=== PATIENT | male | born 1945 | race Caucasian/White ===

== ENCOUNTER 2023-07-21 12:08 | Inpatient (IN) | payer MEDICARE ==
[2023-07-21 12:46] LABS: Basophils % (A) 0 %; Eosinophils # (A) 0.2 k/uL (0-0.7); Eosinophils % (A) 2 %; HCT 34.6 % (39.0-53.0); HGB 11.8 gm/dL (13.0-17.5); Lymphocytes # (A) 1.5 k/uL (1.0-4.8); Lymphocytes % (A) 17 %; MCH 33.9 pg (25.0-35.0); MCV 99.7 fL (80.0-100.0); Macrocytosis Slight; Mean Platelet Volume 7.7; Monocytes # (A) 0.7 k/uL (0-1.0); Monocytes % (A) 8 %; Neutrophils # (A) 5.8 k/uL (1.3-7.7); Neutrophils % (A) 69 %; Platelet Count 319 k/uL (150-450); RBC 3.47 m/uL (4.30-5.90); RDW 13.9 % (11.5-15.5); WBC 8.5 k/uL (3.8-10.6)
--- NOTE | 2023-07-21 12:58 | XR ---
EXAMINATION TYPE: XR chest 2V DATE OF EXAM: 07/21/2023 12:53 PM COMPARISON: Chest radiographs from 07/21/2023 TECHNIQUE: XR chest 2V Frontal and lateral views of the chest. CLINICAL INDICATION:Male, 77 years old with history of difficulty breathing; FINDINGS: Lungs/Pleura: There is no evidence of pleural effusion, focal consolidation, or pneumothorax. Pulmonary vascularity: Unremarkable. Heart/mediastinum: Cardiomediastinal silhouette is unremarkable. Musculoskeletal: No acute osseous pathology. Mild degenerative changes of the thoracic spine. IMPRESSION: No acute cardiopulmonary disease/process.
[2023-07-21 13:13] LABS: ALT 37 U/L (4-49); AST 54 U/L (17-59); African American GFR (CKD) >90 (>60 ml/min/1.73 sqM); Albumin 3.4 g/dL (3.5-5.0); Alkaline Phosphatase 120 U/L (38-126); Anion Gap 8 mmol/L; Blood Urea Nitrogen 16 mg/dL (9-20); Calcium 9.5 mg/dL (8.4-10.2); Carbon Dioxide 25 mmol/L (22-30); Chloride 99 mmol/L (98-107); Glucose 105 mg/dL (74-99); Non-African American GFR(CKD) 84 (>60 ml/min/1.73 sqM); Potassium 4.3 mmol/L (3.5-5.1); Sodium 132 mmol/L (137-145); Total Bilirubin 1.1 mg/dL (0.2-1.3); Total Protein 7.1 g/dL (6.3-8.2)
[2023-07-21 13:21] LABS: NT-Pro-B-Type Natriuretic Pept 2200 pg/mL
[2023-07-21 13:27] LABS: Partial Thromboplastin Time 23.7 sec (22.0-30.0); Prothrombin Time 10.9 sec (10.0-12.5)
[2023-07-21] MEDS ORDERED: HEPARIN SODIUM 1,000 UN/ML (10ML VL) IV PRN (15:51)
[2023-07-21] MEDS ORDERED: HEPARIN SODIUM 1,000 UN/ML (10ML VL) IV ONE (15:51)
[2023-07-21] MEDS ORDERED: NALOXONE 0.4 MG/ML 1 ML VIAL IV PRN (15:57)
--- NOTE | 2023-07-21 15:57 | ED ---
SOB HPI - General Chief Complaint: Shortness of Breath Stated Complaint: chest pains Time Seen by Provider: 07/21/23 14:26 Source: patient Mode of arrival: ambulatory Limitations: no limitations - History of Present Illness Initial Comments: 77-year-old male with past medical history of eczema/psoriasis who presents to the emergency department with lower extremity swelling and shortness of breath. States that earlier this summer he was diagnosed with possible eczema versus psoriasis when he suffered from a very debilitating rash. He has been hospi talized several times and has seen several dermatologists. Recently he was on an 8 week course of prednisone which she finished 2 weeks ago. He reports that shortly after starting the prednisone he began having significant lower extremity swelling and shortness of breath. Since he has stopped the prednisone, the swelling has continued. He currently takes chlorthalidone. Today he saw his primary care, Dr. Joshua. He was reporting do his significant lower extremity edema and shortness of breath. They were to send the patient for an echo. They completed an EKG and found that he was in A. fib. This is new for the patient. He does not currently take any blood thinners. He denies any palpitations. No history of DVT or PE. No history of coronary disease. Due to the A. fib they decided that it was important for the patient to be evaluated in the emergency department for immediate cardiology consultation. The patient denies fevers or chills. No history of heart failure. No other alleviating, precipitating or modifying factors - Related Data Home Medications Medication Instructions Recorded Confirmed Ceramides 1,3,6-II [Cerave 1 applic TOPICAL BID 07/21/23 07/21/23 Moisturizing] Chlorhexidine Gluconate [Peridex] 15 ml PO QID 07/21/23 07/21/23 Chlorthalidone 25 mg PO HS 07/21/23 07/21/23 Clobetasol 0.05% Solution 1 applic TOPICAL BID 07/21/23 07/21/23 Clotrimazole Jean-Pierre [Mycelex 10 mg MUCOUS MEM QID 07/21/23 07/21/23 Jean-Pierre] Omeprazole [PriLOSEC] 20 mg PO AC-BRKFST 07/21/23 07/21/23 Petrolatum, White [Aquaphor] 1 applic TOPICAL BID PRN 07/21/23 07/21/23 Urea 20% Cream 1 applic TOPICAL BID PRN 07/21/23 07/21/23 atenoloL [Tenormin] 50 mg PO HS 07/21/23 07/21/23 lisinopriL 40 mg PO DAILY 07/21/23 07/21/23 Allergies Allergy/AdvReac Type Severity Reaction Status Date / Time ibuprofen AdvReac Unknown Verified 07/21/23 15:13 Review of Systems ROS Statement: Those systems with pertinent positive or pertinent negative responses have been documented in the HPI. ROS Other: All systems not noted in ROS Statement are negative. Past Medical History Past Medical History: No Reported History Past Surgical History: No Surgical Hx Reported Past Psychological History: No Psychological Hx Reported Smoking Status: Never smoker Past Alcohol Use History: Daily General Exam Limitations: no limitations General appearance: alert, in no apparent distress Head exam: Present: atraumatic, normocephalic, normal inspection Eye exam: Present: normal appearance, PERRL, EOMI. Absent: scleral icterus, conjunctival injection, periorbital swelling ENT exam: Present: normal exam, mucous membranes moist Neck exam: Present: normal inspection. Absent: tenderness, meningismus, lymphadenopathy Respiratory exam: Present: wheezes (Right upper lobe). Absent: respiratory distress, rales, rhonchi, stridor Cardiovascular Exam: Present: regular rate, normal rhythm, normal heart sounds. Absent: systolic murmur, diastolic murmur, rubs, gallop, clicks GI/Abdominal exam: Present: soft, normal bowel sounds. Absent: distended, tenderness, guarding, rebound, rigid Extremities exam: Present: full ROM, normal capillary refill, pedal edema (2+). Absent: tenderness, joint swelling, calf tenderness Back exam: Present: normal inspection Neurological exam: Present: alert, oriented X3, CN II-XII intact Psychiatric exam: Present: normal affect, normal mood Skin exam: Present: warm, dry, intact, normal color. Absent: rash Course Vital Signs 07/21/23 07/21/23 07/21/23 12:27 14:18 14:51 Temperature 97.7 F 98.3 F Pulse Rate 75 71 Respiratory 18 20 18 Rate Blood Pressure 140/93 177/107 O2 Sat by Pulse 95 100 Oximetry 07/21/23 07/21/23 07/21/23 16:39 18:17 21:20 Temperature 97.9 F Pulse Rate 80 87 88 Respiratory 18 17 16 Rate Blood Pressure 173/109 118/87 144/98 O2 Sat by Pulse 100 100 99 Oximetry Medical Decision Making - Medical Decision Making Was pt. sent in by a medical professional or institution (, [place], AUTOMOTIVE SOFTWARE ENGINEER, urgent care, hospital, or [place] health care facility...) When possible be specific @ -Patient was sent in by Dr. Tao's office Did you speak to anyone other than the patient for history (EMS, parent, family, police, friend...)? What history was obtained from this source @ - Did you review nursing and triage notes (agree or disagree)? Why? @ -I reviewed and agree with nursing and triage notes Were old charts reviewed (outside hosp., previous admission, EMS record, old EKG, old radiological studies, urgent care reports/EKG's, [place] health care facility records)? Report findings @ -I reviewed the patient's EKG from his primary office Differential Diagnosis (chest pain, altered mental status, abdominal pain women, abdominal pain men, vaginal bleeding, weakness, fever, dyspnea, syncope, headache, dizziness, GI bleed, back pain, seizure, CVA, palpatations, mental health, musculoskeletal)? @ -Differential Dyspnea: Coronary syndrome, arrhythmia, tamponade, asthma, COPD, pulmonary embolism, pneumonia, pneumothorax, pulmonary effusion, anaphylaxis, diabetic ketoacidosis, flailed chest, pulmonary contusion, diaphragmatic rupture, anemia, neuromuscular, this is not meant to be an all-inclusive list. EKG interpreted by me (3pts min.). @ -Yes and demonstrates A. fib with a rate of 72. QRS 108. QTC of 401. No a cute ST segment elevations or depressions X-rays interpreted by me (1pt min.). @ -Yes and demonstrates no acute intrathoracic process CT interpreted by me (1pt min.). @ -None done U/S interpreted by me (1pt. min.). @ -None done What testing was considered but not performed or refused? (CT, X-rays, U/S, labs)? Why? @ -None What meds were considered but not given or refused? Why? @ -None Did you discuss the management of the patient with other professionals (professionals i.e. Dr., PA, AUTOMOTIVE SOFTWARE ENGINEER, lab, RT, psych nurse, community mental health social worker, cardiopulmonary technologist chief, teacher, boat officer, wrapper caser)? Give summary @ -Spoke with Dr. Rodríguez who was agreeable to admit the patient Was smoking cessation discussed for >3mins.? @ -No Was critical care preformed (if so, how long)? @ -Yes, 35 minutes for management of heparin drip Were there social determinants of health that impacted care today? How? (Homeles sness, low income, unemployed, alcoholism, drug addiction, transportation, low edu. Level, literacy, decrease access to med. care, [facility], rehab)? @ -No Was there de-escalation of care discussed even if they declined (Discuss DNR or withdrawal of care, Hospice)? DNR status @ -No What co-morbidities impacted this encounter? (DM, HTN, Smoking, COPD, CAD, Cancer, CVA, ARF, Chemo, Hep., AIDS, mental health diagnosis, sleep apnea, morbid obesity)? @ -Significant psoriasis with steroid use Was patient admitted / discharged? Hospital course, mention meds given and route, prescriptions, significant lab abnormalities, going to OR and other pertinent info. @ -Upon arrival patient placed in room 17. Thorough history and physical exam was performed. 12 EKG was obtained which does demonstrate normal onset A. fib. Rate is controlled. IV is established and laboratory studies are conducted. BNP is elevated at 2200. Chest x-ray demonstrates no acute process. He was given 40 mg of Lasix. Echo was ordered. Recommended admission for cardiology consultation. Patient was agreeable. Spoke with Dr. Rodríguez who agreed to admit the patient. He is placed on a heparin drip because of his new-onset A. fib. He has no contraindications. Patient admitted in stable condition Undiagnosed new problem with uncertain prognosis? @ -Yes Drug Therapy requiring intensive monitoring for toxicity (Heparin, Nitro, Insulin, Cardizem)? @ -Heparin Were any procedures done? @ -No Diagnosis/symptom? @ -Acute bilateral lower extremity edema, new onset A. fib, acute respiratory insufficiency Acute, or Chronic, or Acute on Chronic? @ -Acute Uncomplicated (without systemic symptoms) or Complicated (systemic symptoms)? @ -Complicated Side effects of treatment? @ -Bleeding Exacerbation, Progression, or Severe Exacerbation? @ -No Poses a threat to life or bodily function? How? (Chest pain, [place], [place], pneumonia, PE, COPD, DKA, ARF, appy, cholecystitis, CVA, Diverticulitis, Homicidal, Suicidal, threat to staff... and all critical care pts) @ -Yes patient does have new onset A. fib - Lab Data Result diagrams: 07/21/23 12:35 07/21/23 12:35 Lab Results 07/21/23 07/21/23 07/21/23 Range/Units 12:35 12:35 12:35 WBC 8.5 (3.8-10.6) k/uL RBC 3.47 L (4.30-5.90) m/uL Hgb 11.8 L (13.0-17.5) gm/dL Hct 34.6 L (39.0-53.0) % MCV 99.7 (80.0-100.0) fL MCH 33.9 (25.0-35.0) pg MCHC 34.0 (31.0-37.0) g/dL RDW 13.9 (11.5-15.5) % Plt Count 319 (150-450) k/uL MPV 7.7 Neutrophils % 69 % Lymphocytes % 17 % Monocytes % 8 % Eosinophils % 2 % Basophils % 0 % Neutrophils # 5.8 (1.3-7.7) k/uL Lymphocytes # 1.5 (1.0-4.8) k/uL Monocytes # 0.7 (0-1.0) k/uL Eosinophils # 0.2 (0-0.7) k/uL Basophils # 0.0 (0-0.2) k/uL Macrocytosis Slight PT 10.9 (10.0-12.5) sec INR 1.0 (<1.2) APTT 23.7 (22.0-30.0) sec Sodium 132 L (137-145) mmol/L Potassium 4.3 (3.5-5.1) mmol/L Chloride 99 (98-107) mmol/L Carbon Dioxide 25 (22-30) mmol/L Anion Gap 8 mmol/L BUN 16 (9-20) mg/dL Creatinine 0.86 (0.66-1.25) mg/dL Est GFR (CKD-EPI)AfAm >90 (>60 ml/min/1.73 sqM) Est GFR (CKD-EPI)NonAf 84 (>60 ml/min/1.73 sqM) Glucose 105 H (74-99) mg/dL Calcium 9.5 (8.4-10.2) mg/dL Total Bilirubin 1.1 (0.2-1.3) mg/dL AST 54 (17-59) U/L ALT 37 (4-49) U/L Alkaline Phosphatase 120 (38-126) U/L Troponin I (0.000-0.034) ng/mL NT-Pro-B Natriuret Pep 2200 pg/mL Total Protein 7.1 (6.3-8.2) g/dL Albumin 3.4 L (3.5-5.0) g/dL 07/21/23 Range/Units 12:35 WBC (3.8-10.6) k/uL RBC (4.30-5.90) m/uL Hgb (13.0-17.5) gm/dL Hct (39.0-53.0) % MCV (80.0-100.0) fL MCH (25.0-35.0) pg MCHC (31.0-37.0) g/dL RDW (11.5-15.5) % Plt Count (150-450) k/uL MPV Neutrophils % % Lymphocytes % % Monocytes % % Eosinophils % % Basophils % % Neutrophils # (1.3-7.7) k/uL Lymphocytes # (1.0-4.8) k/uL Monocytes # (0-1.0) k/uL Eosinophils # (0-0.7) k/uL Basophils # (0-0.2) k/uL Macrocytosis PT (10.0-12.5) sec INR (<1.2) APTT (22.0-30.0) sec Sodium (137-145) mmol/L Potassium (3.5-5.1) mmol/L Chloride (98-107) mmol/L Carbon Dioxide (22-30) mmol/L Anion Gap mmol/L BUN (9-20) mg/dL Creatinine (0.66-1.25) mg/dL Est GFR (CKD-EPI)AfAm (>60 ml/min/1.73 sqM) Est GFR (CKD-EPI)NonAf (>60 ml/min/1.73 sqM) Glucose (74-99) mg/dL Calcium (8.4-10.2) mg/dL Total Bilirubin (0.2-1.3) mg/dL AST (17-59) U/L ALT (4-49) U/L Alkaline Phosphatase (38-126) U/L Troponin I 0.015 (0.000-0.034) ng/mL NT-Pro-B Natriuret Pep pg/mL Total Protein (6.3-8.2) g/dL Albumin (3.5-5.0) g/dL Disposition Clinical Impression: New onset a-fib, Lower extremity edema, Dyspnea Disposition: ADMITTED IP TO THIS HOSP Condition: Stable Is patient prescribed a controlled substance at d/c from ED?: No Time of Disposition: 15:57 Decision to Admit Reason: Admit from EC Decision Date: 07/21/23 Decision Time: 15:57
[2023-07-21] MEDS ORDERED: HEPARIN SOD,PORK IN 0.45% NACL 25,000 UNIT in 0.45% NACL 1 250ML.BAG IV SCH (16:00)
[2023-07-21] MEDS ORDERED: FUROSEMIDE 10 MG/ML 4 ML VIAL IV STA (16:06)
[2023-07-21] MEDS ORDERED: PETROLATUM, WHITE OINT 50 GM TUBE TOPICAL PRN (18:17)
[2023-07-21] MEDS ORDERED: NON FORMULARY DRUG (Urea 20% Cream 1 APPLIC) TOPICAL PRN (18:17)
--- NOTE | 2023-07-21 18:27 | P.HPIM ---
History of Present Illness H&P Date: 07/21/23 77-year-old male with PMH of hypertension, GERD, eczema presents to the ED for lower extremity swelling and shortness of breath. reports progressively worsening exertional shortness of breath over the past 3 years. He was recently started on a slow prednisone taper over 8 weeks (starting at 80m g) by his glass forming crew member which completed 2 weeks ago. Since prednisone, he reports excessive lower extremity swelling. He denies any orthopnea. He denies any PND. He denies any chest pain. reports abdominal distention but denies any changes in urination or bowel habits. He has a remote history of smoking cigarettes but quit many years ago. He went to go see his PCP, EKG showed rate control atrial fibrillation, patient was urged to come to the ED. In the ED, he underwent extensive evaluation. Vital signs were stable. CBC showed hemoglobin of 11.8. Coagulation panel within normal limits. CMP showed sodium of 132, glucose 105 and albumin of 3.4. Troponin 0.015. BNP 2200. Chest x-ray negative. EKG showed atrial fibrillation. Patient is admitted for further workup and management. General: non toxic, no distress, appears at stated age Derm: warm, dry Head: atraumatic, normocephalic, symmetric Eyes: EOMI, no lid lag, anicteric sclera Mouth: no lip lesion, mucus membranes moist Cardiovascular: S1S2 irregular, no murmur Lungs: CTA bilateral, no rhonchi, no rales , no accessory muscle use Abdominal: soft, nontender to palpation, no guarding, no appreciable organomegaly Ext: no gross muscle atrophy, 3+ pitting edema bilateral lower extremity, no contractures Neuro: no focal neuro deficits Psych: Alert, oriented, appropriate affect Bilateral lower extremity swelling New onset atrial fibrillation Exertional dyspnea Chronic condition: hypertension, GERD, eczema Based on my assessment of this patient, this patient meets a high complexity level of care. Patient has an acute diagnosis of new onset A-Fib that poses a threat to life or bodily function. He has progressively worsening LE swelling over the past 2 weeks. Bilateral lower extremity swelling: Likely related to prolonged steroid use. BNP within range for age. CXR negative. Advised LE elevation. Obtain Echo. Start Lasix 40 mg IV BID. New onset atrial fibrillation: AILEEN VASC 3. Start Heparin drip. Telemetry steffanie toring. Obtain Echo. Obtain TSH. Continue Atenolol 50 mg PO QHS. Exertional dyspnea: Echo as above. Not sure if cardiac. Pulmonary consult. I have reviewed the following data center consultant notes: I have reviewed the results of the following tests: As above I have ordered the following tests: Echo. D-Dimer. TSH I have discussed the care of this patient with the following independent historian: I have independently interpreted the following test below: EKG as above. I have discussed the management of this patient with the following physician: Discussed with Dr. Younger. Past Medical History Past Medical History: No Reported History Past Surgical History: No Surgical Hx Reported Past Psychological History: No Psychological Hx Reported Smoking Status: Never smoker Past Alcohol Use History: Daily Medications and Allergies Home Medications Medication Instructions Recorded Confirmed Type Ceramides 1,3,6-II [Cerave 1 applic TOPICAL BID 07/21/23 07/21/23 History Moisturizing] Chlorhexidine Gluconate [Peridex] 15 ml PO QID 07/21/23 07/21/23 History Chlorthalidone 25 mg PO HS 07/21/23 07/21/23 History Clobetasol 0.05% Solution 1 applic TOPICAL BID 07/21/23 07/21/23 History Clotrimazole Jean-Pierre [Mycelex 10 mg MUCOUS MEM QID 07/21/23 07/21/23 History Jean-Pierre] Omeprazole [PriLOSEC] 20 mg PO AC-BRKFST 07/21/23 07/21/23 History Petrolatum, White [Aquaphor] 1 applic TOPICAL BID PRN 07/21/23 07/21/23 History Urea 20% Cream 1 applic TOPICAL BID PRN 07/21/23 07/21/23 History atenoloL [Tenormin] 50 mg PO HS 07/21/23 07/21/23 History lisinopriL 40 mg PO DAILY 07/21/23 07/21/23 History Allergies Allergy/AdvReac Type Severity Reaction Status Date / Time ibuprofen AdvReac Unknown Verified 07/21/23 15:13 Physical Exam Vitals: Vital Signs Temp Pulse Resp BP Pulse Ox 07/21/23 18:17 97.9 F 87 17 118/87 100 07/21/23 16:39 80 18 173/109 100 07/21/23 14:51 98.3 F 71 18 177/107 100 07/21/23 14:18 20 07/21/23 12:27 97.7 F 75 18 140/93 95 Intake and Output 07/21/23 07/21/23 07/21/23 06:59 14:59 22:59 Other: Weight 117.48 kg Results CBC & Chem 7: 07/21/23 12:35 07/21/23 12:35 Labs: Abnormal Lab Results - Last 24 Hours (Table) 07/21/23 07/21/23 Range/Units 12:35 12:35 RBC 3.47 L (4.30-5.90) m/uL Hgb 11.8 L (13.0-17.5) gm/dL Hct 34.6 L (39.0-53.0) % Sodium 132 L (137-145) mmol/L Glucose 105 H (74-99) mg/dL Albumin 3.4 L (3.5-5.0) g/dL
--- NOTE | 2023-07-21 20:45 | P.CNPUL ---
History of Present Illness Consult date: 07/21/23 Reason for consult: dyspnea History of present illness: 77-year-old male patient was hospitalized for worsening shortness of breath. The patient has been having progressive exertional dyspnea and the patient has also noted some increased lower extremity edema. The patient has history of eczema/skin disorder and the patient was started on high-dose steroids approximately 8 weeks ago by the recovery collector which she completed approximately 2 weeks ago. He has seen dematology and he was given skin biopsy and a final diagnosis has not achieved and the skin lesions improved while on therapy and has recurred since. He was given also steroid cream. Along with intake of steroids, the patient developed significant fluid retention lower extremity edema. No orthopnea. No chest pain. No history of smoking and the patient's quit smoking a few years back. In the emergency department, the patient was found to be in atrial fibrillation with a controlled rate. The patient a proBNP level of 2200. Chest x-ray showed no acute abnormalities. Cognition profile was within normal limits. There was no was 11.8. EKG showed a new onset atrial fibrillation with a controlled rate. Accordingly, the patient was hospitalized. The patient was started on IV heparin. The patient is also on Lasix 40 mg IV every 12 hours. Echo cardiac, was also ordered. He has KRISTIE and he has been on CPAP therapy. Review of Systems Constitutional: Reports weight gain Eyes: denies as per HPI, denies blurred vision, denies bulging eye, denies decreased vision, denies diplopia, denies discharge, denies dry eye, denies irritation, denies itching, denies pain, denies photophobia, denies loss of per ipheral vision, denies loss of vision, denies tunnel vision/blind spots Ears: deny: decreased hearing, ear discharge, earache, tinnitus Ears, nose, mouth and throat: Reports as per HPI Breasts: absent: as per HPI, gynecomastia Cardiovascular: Reports decreased exercise tolerance, Reports irregular heart beat, Reports leg edema Respiratory: Reports dyspnea Gastrointestinal: Reports as per HPI Genitourinary: Reports as per HPI Musculoskeletal: Reports as per HPI Musculoskeletal: bilateral: ankle swelling, absent: ankle pain, ankle stiffness Integumentary: Reports as per HPI (History of eczema) Neurological: Reports as per HPI Psychiatric: Reports as per HPI Endocrine: Reports as per HPI Hematologic/Lymphatic: Reports as per HPI Allergic/Immunologic: Reports as per HPI Past Medical History Past Medical History: No Reported History, Atrial Fibrillation, GERD/Reflux, Hypertension, Sleep Apnea/CPAP/BIPAP Additional Past Medical History / Comment(s): Eczema/skin rash- steroid responsive Past Surgical History: No Surgical Hx Reported Past Psychological History: No Psychological Hx Reported Smoking Status: Never smoker Past Alcohol Use History: Daily Medications and Allergies Home Medications Medication Instructions Recorded Confirmed Type Ceramides 1,3,6-II [Cerave 1 applic TOPICAL BID 07/21/23 07/21/23 History Moisturizing] Chlorhexidine Gluconate [Peridex] 15 ml PO QID 07/21/23 07/21/23 History Chlorthalidone 25 mg PO HS 07/21/23 07/21/23 History Clobetasol 0.05% Solution 1 applic TOPICAL BID 07/21/23 07/21/23 History Clotrimazole Jean-Pierre [Mycelex 10 mg MUCOUS MEM QID 07/21/23 07/21/23 History Jean-Pierre] Omeprazole [PriLOSEC] 20 mg PO AC-BRKFST 07/21/23 07/21/23 History Petrolatum, White [Aquaphor] 1 applic TOPICAL BID PRN 07/21/23 07/21/23 History Urea 20% Cream 1 applic TOPICAL BID PRN 07/21/23 07/21/23 History atenoloL [Tenormin] 50 mg PO HS 07/21/23 07/21/23 History lisinopriL 40 mg PO DAILY 07/21/23 07/21/23 History Allergies Allergy/AdvReac Type Severity Reaction Status Date / Time ibuprofen AdvReac Unknown Verified 07/21/23 15:13 Physical Exam Vitals: Vital Signs Temp Pulse Resp BP Pulse Ox 07/21/23 18:17 97.9 F 87 17 118/87 100 07/21/23 16:39 80 18 173/109 100 07/21/23 14:51 98.3 F 71 18 177/107 100 07/21/23 14:18 20 07/21/23 12:27 97.7 F 75 18 140/93 95 Intake and Output 07/21/23 07/21/23 07/21/23 06:59 14:59 22:59 Other: Weight 117.48 kg General: non toxic, no distress, appears at stated age, the patient is currently on room air oxygen with a pulse ox of 99% Derm: warm, dry Head: atraumatic, normocephalic, symmetric Eyes: EOMI, no lid lag, anicteric sclera Mouth: no lip lesion, mucus membranes moist Cardiovascular: S1S2 irregular consistent with atrial fibrillation, no murmur Lungs: CTA bilateral, no rhonchi, no rales , no accessory muscle use Abdominal:Abdominal exam revealed normal bowel sounds. The abdomen was soft, non-tender, and without masses, organomegaly, or appreciable enlargement of the abdominal aorta. Ext: no gross muscle atrophy, 3+ pitting edema bilateral lower extremity, no contractures Neuro:Neurologically, the patient is awake and alert and the patient does not have any focal neurological deficit. Cranial nerves are essentially intact. Psych: Alert, oriented, appropriate affect Results - Laboratory Findings CBC and BMP: 07/21/23 12:35 07/21/23 12:35 PT/INR, D-dimer PT 10.9 sec (10.0-12.5) 07/21/23 12:35 INR 1.0 (<1.2) 07/21/23 12:35 Abnormal lab findings: Abnormal Labs 07/21/23 07/21/23 12:35 12:35 RBC 3.47 L Hgb 11.8 L Hct 34.6 L Sodium 132 L Glucose 105 H Albumin 3.4 L - Diagnostic Findings Chest x-ray: image reviewed Assessment and Plan Plan: New-onset A. fib, rate controlled, consider underlying CHF in proBNP is mildly elevated. Echocardiogram is pending for now. Patient is currently on IV heparin. Lower extremity edema, currently under investigation. Rule out underlying congestion heart failure Hypertension History of eczema/ skin rash that was steroid responsive and this has recurred since off steroids. History of steroid use currently off steroids. This was given to the patient for skin rash Acid reflux Obesity and he is on CPAP therapy at 16 cm H20 Impaired hearing and he has been exposed to agent orange Plan Continue Atenolol for rate control Continue diuretics, currently on Lasix 40 mg IV every 12 hours Echocardiogram to evaluate the LV IV heparin Patient is currently on room air oxygen. Chest x-ray shows no acute pulmonary abnormalities Allow the patient to use home CPAP therapy Keep off steroids We'll continue to follow
[2023-07-21] MEDS: atenoloL 50 MG TAB PO SCH (21:14)
[2023-07-21] MEDS: MINERAL OIL-WHITE PETROLATUM 120 GM JAR TOPICAL SCH (21:14)
[2023-07-21] MEDS: FUROSEMIDE 10 MG/ML 4 ML VIAL IV SCH (21:16)
[2023-07-21] MEDS: CLOTRIMAZOLE TROCHE 10 MG TROCHE MUCOUS MEM SCH (22:56)
[2023-07-22 04:26] LABS: Basophils % (A) 1 %; Eosinophils # (A) 0.4 k/uL (0-0.7); Eosinophils % (A) 5 %; HGB 11.7 gm/dL (13.0-17.5); Lymphocytes # (A) 1.3 k/uL (1.0-4.8); Lymphocytes % (A) 18 %; MCH 34.5 pg (25.0-35.0); MCHC 34.3 g/dL (31.0-37.0); MCV 100.6 fL (80.0-100.0); Macrocytosis Slight; Mean Platelet Volume 7.2; Monocytes # (A) 0.6 k/uL (0-1.0); Monocytes % (A) 8 %; Neutrophils # (A) 4.7 k/uL (1.3-7.7); Neutrophils % (A) 65 %; Platelet Count 294 k/uL (150-450); RBC 3.38 m/uL (4.30-5.90); RDW 14.1 % (11.5-15.5); WBC 7.2 k/uL (3.8-10.6)
[2023-07-22 04:54] LABS: Partial Thromboplastin Time 94.9 sec (22.0-30.0); Prothrombin Time 11.3 sec (10.0-12.5)
[2023-07-22 05:37] LABS: African American GFR (CKD) 85 (>60 ml/min/1.73 sqM); Anion Gap 8 mmol/L; Blood Urea Nitrogen 19 mg/dL (9-20); Calcium 9.5 mg/dL (8.4-10.2); Carbon Dioxide 26 mmol/L (22-30); Chloride 99 mmol/L (98-107); Glucose 107 mg/dL (74-99); Non-African American GFR(CKD) 74 (>60 ml/min/1.73 sqM); Potassium 3.5 mmol/L (3.5-5.1); Sodium 133 mmol/L (137-145)
--- NOTE | 2023-07-22 08:45 | CT ---
EXAMINATION TYPE: CT chest angio for PE CT DLP: 562.9 mGycm, Automated exposure control for dose reduction was used. DATE OF EXAM: 07/22/2023 8:24 AM COMPARISON: Chest radiograph from one day prior. CLINICAL INDICATION:Male, 77 years old with history of r/o PE; elevated d-dimer TECHNIQUE/CONTRAST: CTA scan of the thorax is performed with IV Contrast, patient injected with 60 mL of Isovue 370, MIP images are created and reviewed these are created on a separate workstation.. FINDINGS: Pulmonary Artery: Scattered filling defects within the right lower lobe pulmonary arterial vasculatur e as well as the left lower lobe pulmonary arterial vasculature. The left upper lobe and right upper lobe and middle lobe also demonstrate filling defects within the pulmonary arterial vasculature. Lungs/Pleura: No evidence of focal consolidation, pleural effusion or pneumothorax. Airway: Large airways are patent. Heart: The heart is enlarged for size with coronary artery atherosclerosis and aortic valve leaflet c alcifications. Vasculature: Mild atherosclerotic calcifications are present throughout the aorta and its branches. Mediastinum: No gross evidence of adenopathy. Musculoskeletal: Mild degenerative disc disease changes are present throughout the thoracolumbar spin e. Soft Tissues: Unremarkable. Lower neck: No significant findings. Upper Abdomen: Diffuse low-attenuation to the liver parenchyma.. IMPRESSION: 1. Scattered filling defects compatible with multiple pulmonary emboli no evidence for right heart s train at this time. 2. Hepatic steatosis. Findings communicated to Wes dumont NP on 07/22/2023 8:[address] Franco Griffin.
[2023-07-22] MEDS: lisinopriL 20 MG TAB PO SCH (08:52)
[2023-07-22] MEDS: FUROSEMIDE 10 MG/ML 4 ML VIAL IV SCH ×2 (08:52→19:53)
[2023-07-22] MEDS: CLOTRIMAZOLE TROCHE 10 MG TROCHE MUCOUS MEM SCH ×4 (08:53→23:30)
[2023-07-22] MEDS: PANTOPRAZOLE 40 MG TABLET PO SCH (08:53)
[2023-07-22] MEDS ORDERED: APIXABAN 5 MG TAB PO SCH (09:00)
[2023-07-22] MEDS: MINERAL OIL-WHITE PETROLATUM 120 GM JAR TOPICAL SCH ×2 (09:01→19:53)
--- NOTE | 2023-07-22 09:21 | US ---
EXAMINATION TYPE: US venous doppler duplex LE BI DATE OF EXAM: 07/22/2023 8:56 AM COMPARISON: CT today CLINICAL INDICATION: Male, 77 years old with history of r/o DVT; Bilateral edema SIDE PERFORMED: Bilateral TECHNIQUE: The lower extremity deep venous system is examined utilizing real time linear array sonog aki with graded compression, doppler sonography and color-flow sonography. VESSELS IMAGED: Common Femoral Vein Deep Femoral Vein Greater Saphenous Vein * Femoral Vein Popliteal Vein Small Saphenous Vein * Proximal Calf Veins (* superficial vessels) Grayscale, color doppler, spectral doppler imaging performed of the deep veins of the lower extremiti es. There is normal flow, compressibility, vascular waveforms. Right Leg: Negative for DVT Left Leg: Negative for DVT IMPRESSION: No deep venous thrombosis of the bilateral lower extremities.
[2023-07-22] MEDS: HEPARIN SOD,PORK IN 0.45% NACL 25,000 UNIT in 0.45% NACL 1 250ML.BAG IV SCH ×2 (09:50→19:51)
--- NOTE | 2023-07-22 12:18 | P.CRDCN ---
History of Present Illness Consult date: 07/22/23 Consult reason: atrial fibrillation (New onset, lower extremity edema) History of present illness: History of present illness: This is a 77-year-old male with past medical history of hypertension, gastroesophageal reflux disease, eczema, Agent [place] exposure in [place], recent treatment for thrush. 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 Patient gives history that he had a bad rash that was red and oozing was following with [facility] in [place] was recently sent to dermatology and has been on a prednisone taper starting at 80 mg daily for 7 days.patient states he completed prednisone about 2 weeks ago and the rash started coming back. He states for the past 2-3 weeks he's had some shortness o f breath and burning sensation in the midst part of his chest as well as lower extremity edema. He had a recheck [facility] in [place] and has an appointment with cardiology at the end of July. Because the chest burning has been going on since May worse when he bends over and is worse with activity. He also has nausea with it and lightheadedness. He states he will often sit down for 5 minutes and his symptoms improve. He denies having a history of diabetes, CVA or TIA and no history of atrial fibrillation. Also reported that he was at his PCP and EKG showed A. fib and he was sent in the emergency center. patient has subsequently been found to have multiple PE on CAT scan, and started on heparin drip. Patient is also been started on Lasix 40 mg IV every 12 hours. EKG atrial fibrillation with controlled rate 72 bpm Chest x-ray: No acute process CTA of the chest revealed scattered filling defects compatible with multiple pulmonary emboli. No evidence of right heart strain. Hepatis steatosis WBC 7.2, hemoglobin 11.7, platelet count 294. D-dimer 3.57. Sodium 133 oth erwise electrolytes and renal function are normal. Blood sugar 107. TSH 1.790 troponin negative 1. ProBNP 2200 Home cardiac medications: Atenolol 50 mg at bedtime, chlorthalidone 25 mg at bedtime, lisinopril 40 mg daily Review Of Systems: At the time of my evaluation: Constitutional: No fever, no chills. No weakness, fatigue or lethargy. EENT: No headache. No dizziness. Lungs: + shortness of breath, cough, no sputum production. No wheezing. +STINSON Cardiovascular: No chest pain, + lower extremity edema. No palpitations. No paroxysmal nocturnal dyspnea. No orthopnea. No lightheadedness or dizziness. No syncopal episodes. Abdominal: No abdominal pain. No nausea, vomiting. No diarrhea. No constipation. No bloody or tarry stools. Musculoskeletal: No myalgias. No muscle weakness, no frequent falls. Integumentary: No wounds. No rash. No unusual bruising. Neurologic: No aphasia. No facial droop. No change in mentation. Physical examination: Gen: This is a 77-year-old male lying in bed and appears to be in no acute distress VS: reviewed HEENT: Head is atraumatic, normocephalic. Pupils equal, round. Sclerae is anicteric. NECK: Supple. No JVD. . LUNGS: Clear to auscultation. No wheezes or rhonchi. No intercostal retractions. HEART: Irregular rate and rhythm. No murmur. ABDOMEN: Soft No tenderness. EXTREMITIES: + pedal edema. No calf tenderness. NEUROLOGICAL: Patient is awake, alert and oriented x3. Assessment: Pulmonary emboli, no right heart strain on CT New onset atrial fibrillation with controlled rate Acute heart failure Chest pain and Dyspnea on exertion concerning for underlying coronary artery disease Bilateral lower extremity edema Gastroesophageal reflux disease Hypertension Eczema/rash Plan: Continue IV Lasix Monitor I&O, daily weights, electrolytes and renal function Continue heparin drip Obtain 2-D echocardiogram and Doppler study to assess cardiac structure and function Plan for cardiac catheterization or stress test depending on results of echocardiogram Further recommendations to follow based upon clinical course Thank you kindly for this consultation. Nurse practitioner note has been reviewed, I agree with documented findings and plan of care. Patient was seen and examined. Past Medical History Past Medical History: No Reported History Additional Past Medical History / Comment(s): Eczema/skin rash- steroid responsive Past Surgical History: No Surgical Hx Reported Past Psychological History: No Psychological Hx Reported Smoking Status: Never smoker Past Alcohol Use History: Daily Medications and Allergies Home Medications Medication Instructions Recorded Confirmed Type Ceramides 1,3,6-II [Cerave 1 applic TOPICAL BID 07/21/23 07/21/23 History Moisturizing] Chlorhexidine Gluconate [Peridex] 15 ml PO QID 07/21/23 07/21/23 History Chlorthalidone 25 mg PO HS 07/21/23 07/21/23 History Clobetasol 0.05% Solution 1 applic TOPICAL BID 07/21/23 07/21/23 History Clotrimazole Jean-Pierre [Mycelex 10 mg MUCOUS MEM QID 07/21/23 07/21/23 History Jean-Pierre] Omeprazole [PriLOSEC] 20 mg PO AC-BRKFST 07/21/23 07/21/23 History Petrolatum, White [Aquaphor] 1 applic TOPICAL BID PRN 07/21/23 07/21/23 History Urea 20% Cream 1 applic TOPICAL BID PRN 07/21/23 07/21/23 History atenoloL [Tenormin] 50 mg PO HS 07/21/23 07/21/23 History lisinopriL 40 mg PO DAILY 07/21/23 07/21/23 History Allergies Allergy/AdvReac Type Severity Reaction Status Date / Time ibuprofen AdvReac Unknown Verified 07/21/23 15:13 Physical Exam Vitals: Vital Signs Temp Pulse Resp BP Pulse Ox 07/22/23 08:51 73 18 153/79 99 07/22/23 05:00 69 18 134/92 98 07/22/23 04:45 62 18 144/99 07/22/23 00:42 71 18 149/77 93 L 07/21/23 21:20 88 16 144/98 99 07/21/23 18:17 97.9 F 87 17 118/87 100 07/21/23 16:39 80 18 173/109 100 07/21/23 14:51 98.3 F 71 18 177/107 100 07/21/23 14:18 20 07/21/23 12:27 97.7 F 75 18 140/93 95 Intake and Output 07/21/23 07/22/23 07/22/23 22:59 06:59 14:59 Intake Total 62.667 87.365 Output Total 350 450 Balance -287.333 -362.635 Intake: Intake, IV Titration 62.667 87.365 Amount Heparin Sod,Pork in 0.45% 62.667 87.365 NaCl 25,000 unit In 0.45 % NaCl 1 250ml.bag @ 8. 512 UNITS/KG/HR 10 mls/hr IV .Q24H [facility] Rx#: [id number] Output: Urine 350 450 Other: # Voids 1 Results 07/22/23 03:56 07/22/23 03:56 Cardiac Enzymes 07/21/23 07/21/23 Range/Units 12:35 12:35 AST 54 (17-59) U/L Troponin I 0.015 (0.000-0.034) ng/mL Coagulation 07/21/23 07/21/23 07/22/23 Range/Units 12:35 21:33 03:56 PT 10.9 11.3 (10.0-12.5) sec APTT 23.7 33.8 H 94.9 H (22.0-30.0) sec CBC 07/21/23 07/22/23 Range/Units 12:35 03:56 WBC 8.5 7.2 (3.8-10.6) k/uL RBC 3.47 L 3.38 L (4.30-5.90) m/uL Hgb 11.8 L 11.7 L (13.0-17.5) gm/dL Hct 34.6 L 34.0 L (39.0-53.0) % Plt Count 319 294 (150-450) k/uL Comprehensive Metabolic Panel 07/21/23 07/22/23 Range/Units 12:35 03:56 Sodium 132 L 133 L (137-145) mmol/L Potassium 4.3 3.5 (3.5-5.1) mmol/L Chloride 99 99 (98-107) mmol/L Carbon Dioxide 25 26 (22-30) mmol/L BUN 16 19 (9-20) mg/dL Creatinine 0.86 0.99 (0.66-1.25) mg/dL Glucose 105 H 107 H (74-99) mg/dL Calcium 9.5 9.5 (8.4-10.2) mg/dL AST 54 (17-59) U/L ALT 37 (4-49) U/L Alkaline Phosphatase 120 (38-126) U/L Total Protein 7.1 (6.3-8.2) g/dL Albumin 3.4 L (3.5-5.0) g/dL Current Medications Generic Name Dose Route Start Last Admin Trade Name Freq PRN Reason Stop Dose Admin Atenolol 50 mg 07/21/23 21:00 07/21/23 21:14 Atenolol 50 Mg Tab PO 50 mg HS [facility] Administration Clotrimazole 10 mg 07/21/23 22:00 07/22/23 08:53 Clotrimazole Jean-Pierre 10 Mg Jean-Pierre MUCOUS MEM 10 mg QID [facility] Administration Furosemide 40 mg 07/21/23 21:00 07/22/23 08:52 Furosemide 10 Mg/Ml 4 Ml Vial IV 40 mg Q12HR [facility] Administration Heparin Sodium/Sodium Chloride 250 mls @ 21.146 mls/hr 07/22/23 08:45 25,000 unit/ Sodium Chloride IV .[id number] [facility] Protocol 18 UNITS/KG/HR Lisinopril 40 mg 07/22/23 09:00 07/22/23 08:52 Lisinopril 20 Mg Tab PO 40 mg DAILY [facility] Administration Multi-Ingred Cream/Lotion/Oil/Oint 1 applic 07/21/23 21:00 07/21/23 21:14 Mineral Oil-White Petrolatum 120 Gm Jar TOPICAL 1 applic BID [facility] Administration Naloxone HCl 0.2 mg 07/21/23 15:57 Naloxone 0.4 Mg/Ml 1 Ml Vial IV Q2M PRN Opioid Reversal Non-Formulary Medication 1 applic 07/21/23 18:17 Urea 20% Cream TOPICAL BID PRN skin issues/arms Pantoprazole Sodium 40 mg 07/22/23 07:30 07/22/23 08:53 Pantoprazole 40 Mg Tablet PO 40 mg AC-BRKFST [facility] Administration Petrolatum 1 applic 07/21/23 18:17 Petrolatum, White Oint 50 Gm Tube TOPICAL BID PRN Dry Skin Protocol Intake and Output 07/21/23 07/22/23 07/22/23 22:59 06:59 14:59 Intake Total 62.667 87.365 Output Total 350 450 Balance -287.333 -362.635 Intake: Intake, IV Titration 62.667 87.365 Amount Heparin Sod,Pork in 0.45% 62.667 87.365 NaCl 25,000 unit In 0.45 % NaCl 1 250ml.bag @ 8. 512 UNITS/KG/HR 10 mls/hr IV .Q24H [facility] Rx#: [id number] Output: Urine 350 450 Other: # Voids 1 07/22/23 03:56 07/22/23 03:56
--- NOTE | 2023-07-22 13:44 | P.PN ---
Subjective Progress Note Date: 07/22/23 77-year-old male with PMH of hypertension, GERD, eczema presents to the ED for lower extremity swelling and shortness of breath. reports progressively worsening exertional shortness of breath over the past 3 years. He was recently started on a slow prednisone taper over 8 weeks (starting at 80mg) by his human services care specialist which completed 2 weeks ago. Since prednisone, he reports excessive lower extremity swelling. He denies any orthopnea. He denies any PND. He denies any chest pain. reports abdominal distention but denies any changes in urination or bowel habits. He has a remote history of smoking cigarettes but quit many years ago. He went to go see his PCP, EKG showed rate control atrial fibrillation, patient was urged to come to the ED. In the ED, he underwent extensive evaluation. Vital signs were stable. CBC showed hemoglobin of 11.8. Coagulation panel within normal limits. CMP showed sodium of 132, glucose 105 and albumin of 3.4. Troponin 0.015. BNP 2200. Chest x-ray negative. EKG showed atrial fibrillation. 07/22 Patient was seen and examined. No acute events overnight. Continued SOB and LE swelling. Apparently he was given a dose of Kayexalate and calcium gluconate that was intended to be ordered for another patient by nursing. D- Dimer 3.57. CTA chest was ordered + for PE. LE venous doppler negative for DVT. Repeat troponin 0.018. TSH 1.79. APTT 94.9. BMP shows Na 133, glucose 107. A1c 6.6. CBC shows Hg 11.7 with MCV 100.6. He is continued of Lasix 40 mg IV BID and Heparin drip (switched to high intensity due to PE diagnosis). Cardiology recommends continued diuresis and Echo with possible cath. Pulmonology recommends continued diuresis and IV heparin. General: non toxic, no distress, appears at stated age Derm: warm, dry Head: atraumatic, normocephalic, symmetric Eyes: EOMI, no lid lag, anicteric sclera Cardiovascular: S1S2 irregular, no murmur Lungs: CTA bilateral, no rhonchi, no rales , no accessory muscle use Ext: no gross muscle atrophy, 3+ pitting edema bilateral lower extremity, no contractures Neuro: no focal neuro deficits Psych: Alert, oriented, appropriate affect Pulmonary embolus Bilateral lower extremity swelling New onset atrial fibrillation Chronic condition: hypertension, GERD, eczema Based on my assessment of this patient, this patient meets a high complexity level of care. Patient has an acute diagnosis of new onset A-Fib that poses a threat to life or bodily function. He has progressively worsening LE swelling over the past 2 weeks. Found to have PE. Echo is pending. Pulmonary embolus: Switch heparin drip to high intensity. Hypercoag workup in the outpatient setting. Bilateral lower extremity swelling: Likely related to prolonged steroid use. BNP within range for age. CXR negative. Advised LE elevation. Obtain Echo. Start Lasix 40 mg IV BID. New onset atrial fibrillation: AILEEN VASC 3. Continue Heparin drip. Telemetry monitoring. Obtain Echo. Continue Atenolol 50 mg PO QHS. I have reviewed the following alliances consultant notes: [place], Cardio note. I have reviewed the results of the following tests: As above I have ordered the following tests: Echo is pending. BMP to monitor renal function while on Lasix. I have discussed the care of this patient with the following independent historian: I have independently interpreted the following test below: Repeat EKG today shows sinus rhythm with sinus arrhythmia. I have discussed the management of this patient with the following physician: Objective - Vital Signs Vital signs: Vital Signs Temp 98.6 F 07/22/23 12:00 Pulse 76 07/22/23 12:00 Resp 18 07/22/23 12:00 BP 150/81 07/22/23 12:00 Pulse Ox 98 07/22/23 12:00 FiO2 Intake & Output 07/21/23 07/22/23 07/22/23 18:59 06:59 18:59 Intake Total 150.032 110 Output Total 800 Balance -649.968 110 Weight 117.48 kg 117.48 kg Intake: Intake, IV Titration 150.032 Amount Heparin Sod,Pork in 0.45% 150.032 NaCl 25,000 unit In 0.45 % NaCl 1 250ml.bag @ 8. 512 UNITS/KG/HR 10 mls/hr IV .Q24H [facility] Rx#: [id number] Oral 110 Output: Urine 800 Other: # Voids 1 - Labs CBC & Chem 7: 07/22/23 03:56 07/22/23 03:56 Labs: Abnormal Lab Results - Last 24 Hours (Table) 1007/22/23 07/22/23 Range/Units 21:33 03:56 03:56 RBC 3.38 L (4.30-5.90) m/uL Hgb 11.7 L (13.0-17.5) gm/dL Hct 34.0 L (39.0-53.0) % MCV 100.6 H (80.0-100.0) fL APTT 33.8 H (22.0-30.0) sec D-Dimer (<0.60) mg/L FEU Sodium (137-145) mmol/L Glucose (74-99) mg/dL Hemoglobin A1c 6.6 H (<=6.0) % 07/22/23 07/22/23 07/22/23 Range/Units 03:56 03:56 09:40 RBC (4.30-5.90) m/uL Hgb (13.0-17.5) gm/dL Hct (39.0-53.0) % MCV (80.0-100.0) fL APTT 94.9 H 58.5 H (22.0-30.0) sec D-Dimer 3.57 H (<0.60) mg/L FEU Sodium 133 L (137-145) mmol/L Glucose 107 H (74-99) mg/dL Hemoglobin A1c (<=6.0) %
--- NOTE | 2023-07-22 15:04 | P.PN ---
Subjective Progress Note Date: 07/22/23 77-year-old male patient was hospitalized for worsening shortness of breath. The patient has been having progressive exertional dyspnea and the patient has also noted some increased lower extremity edema. The patient has history of eczema/skin disorder and the patient was started on high-dose steroids approximately 8 weeks ago by the environmental engineering professor which she completed approximately 2 weeks ago. He has seen dematology and he was given skin biopsy and a final diagnosis has not achieved and the skin lesions improved while on therapy and has recurred since. He was given also steroid cream. Along with intake of steroids, the patient developed significant fluid retention lower extremity edema. No orthopnea. No chest pain. No history of smoking and the patient's quit smoking a few years back. In the emergency department, the patient was found to be in atrial fibrillation with a controlled rate. The patient a proBNP level of 2200. Chest x-ray showed no acute abnormalities. Cognition profile was within normal limits. There was no was 11.8. EKG showed a new onset atrial fibrillation with a controlled rate. Accordingly, the patient was hospitalized. The patient was started on IV heparin. The patient is also on Lasix 40 mg IV every 12 hours. Echo cardiac, was also ordered. He has KRISTIE and he has been on CPAP therapy. On today's evaluation of 07/22/2023 patient for a follow-up. The patient is doing well. No specific complaints. He remains in atrial fibrillation. Rate is controlled for now. Echocardiogram is to be done today. The patient remains on IV heparin. The patient is still taking Lasix 40 mg IV every 12 hours and is producing adequate amount of urine output. He is off steroids. His skin lesions do not to be related to be pityriasis. He was also able to bring in his CPAP machine. I checked the machine. The patient is set at a pressure of 15 cm of water on outpatient basis. The patient's WBC count at 7.2, hemoglobin 11.7, PTT therapeutic at 58. BUN is 19 with a creatinine of 0.9. ProBNP level is 2200 and the TSH is at 1.7. Troponins of 0.01 respectively 2. He has no specific complaints otherwise for now. He feels well. Objective - Vital Signs Vital signs: Vital Signs Temp 97.9 F 07/21/23 18:17 Pulse 73 07/22/23 08:51 Resp 18 07/22/23 08:51 BP 153/79 07/22/23 08:51 Pulse Ox 99 07/22/23 08:51 FiO2 Intake & Output 07/21/23 07/22/23 07/22/23 18:59 06:59 18:59 Intake Total 150.032 Output Total 800 Balance -649.968 Weight 117.48 kg Intake: Intake, IV Titration 150.032 Amount Heparin Sod,Pork in 0.45% 150.032 NaCl 25,000 unit In 0.45 % NaCl 1 250ml.bag @ 8. 512 UNITS/KG/HR 10 mls/hr IV .Q24H [facility] Rx#: [id number] Output: Urine 800 Other: # Voids 1 - Exam General: non toxic, no distress, appears at stated age, the patient is currently on room air oxygen with a pulse ox of 99% Derm: warm, dry Head: atraumatic, normocephalic, symmetric Eyes: EOMI, no lid lag, anicteric sclera Mouth: no lip lesion, mucus membranes moist Cardiovascular: S1S2 irregular consistent with atrial fibrillation, no murmur Lungs: CTA bilateral, no rhonchi, no rales , no accessory muscle use Abdominal:Abdominal exam revealed normal bowel sounds. The abdomen was soft, non-tender, and without masses, organomegaly, or appreciable enlargement of the abdominal aorta. Ext: no gross muscle atrophy, 3+ pitting edema bilateral lower extremity, no contractures Neuro:Neurologically, the patient is awake and alert and the patient does not have any focal neurological deficit. Cranial nerves are essentially intact. Psych: Alert, oriented, appropriate affect - Labs CBC & Chem 7: 07/22/23 03:56 07/22/23 03:56 Labs: Abnormal Lab Results - Last 24 Hours (Table) 07/21/23 07/21/23 07/21/23 Range/Units 12:35 12:35 21:33 RBC 3.47 L (4.30-5.90) m/uL Hgb 11.8 L (13.0-17.5) gm/dL Hct 34.6 L (39.0-53.0) % MCV (80.0-100.0) fL APTT 33.8 H (22.0-30.0) sec D-Dimer (<0.60) mg/L FEU Sodium 132 L (137-145) mmol/L Glucose 105 H (74-99) mg/dL Hemoglobin A1c (<=6.0) % Albumin 3.4 L (3.5-5.0) g/dL 07/22/23 07/22/23 07/22/23 Range/Units 03:56 03:56 03:56 RBC 3.38 L (4.30-5.90) m/uL Hgb 11.7 L (13.0-17.5) gm/dL Hct 34.0 L (39.0-53.0) % MCV 100.6 H (80.0-100.0) fL APTT (22.0-30.0) sec D-Dimer (<0.60) mg/L FEU Sodium 133 L (137-145) mmol/L Glucose 107 H (74-99) mg/dL Hemoglobin A1c 6.6 H (<=6.0) % Albumin (3.5-5.0) g/dL 07/22/23 07/22/23 Range/Units 03:56 09:40 RBC (4.30-5.90) m/uL Hgb (13.0-17.5) gm/dL Hct (39.0-53.0) % MCV (80.0-100.0) fL APTT 94.9 H 58.5 H (22.0-30.0) sec D-Dimer 3.57 H (<0.60) mg/L FEU Sodium (137-145) mmol/L Glucose (74-99) mg/dL Hemoglobin A1c (<=6.0) % Albumin (3.5-5.0) g/dL Assessment and Plan Plan: New-onset A. fib, rate controlled, consider underlying CHF in proBNP is mildly elevated. Echocardiogram is pending for now. Patient is currently on IV hep rao. Lower extremity edema, currently under investigation. Rule out underlying congestion heart failure Hypertension History of eczema/pityriasis skin rash that was steroid responsive and this has recurred since off steroids. History of steroid use currently off steroids. This was given to the patient for skin rash. I saw him this was related to pityriasis Acid reflux Obesity and he is on CPAP therapy at 15 cm of water Impaired hearing and he has been exposed to agent orange Plan Continue Atenolol for rate control and the patient is receiving 50 mg by mouth daily Continue diuretics, currently on Lasix 40 mg IV every 12 hours Echocardiogram to evaluate the LV, results are still pending IV heparin, primary grade teacher on the case Patient is currently on room air oxygen. Chest x-ray shows no acute pulmonary abnormalities Allow the patient to use home CPAP therapy Keep off steroids We'll continue to follow
--- NOTE | 2023-07-22 16:52 | CA ---
Transthoracic Echo Report Name: Kilo Yeh Age: 77 Gender: M : 1945 Exam Date: 07/22/2023 10:15 Exam Location: [facility] Ht (in): 70 Wt (lb): 259 Ordering Physician: Abigail Younger DO Attending/Referring Phys: [id number], [employer] Superintendent Ana Luisa Mtz RDCS Procedure CPT: Indications: new onset afib, lower extremity swelling, bnp high Cardiac Hx: Technical Quality: Poor Contrast 1: Definity Total Dose (mL): 2 Contrast 2: Total Dose (mL): MEASUREMENTS (Male / Female) Normal Values 2D ECHO LV Diastolic Diameter PLAX 3.4 cm 4.2 - 5.9 / 3.9 - 5.3 cm LV Systolic Diameter PLAX 2.3 cm IVS Diastolic Thickness 1.6 cm 0.6 - 1.0 / 0.6 - 0.9 cm LVPW Diastolic Thickness 1.4 cm 0.6 - 1.0 / 0.6 - 0.9 cm LV Relative Wall Thickness 0.9 RV Internal Dim ED PLAX 4.0 cm LA Volume 95.7 cm??? 18 - 58 / 22 - 52 cm??? LA Volume Index 39.0 cm???/m??? 16 - 28 cm???/m??? M-MODE Aortic Root Diameter MM 3.3 cm LA Systolic Diameter MM 6.5 cm LA Ao Ratio MM 1.9 AV Cusp Separation MM 1.3 cm DOPPLER AV Peak Velocity 221.3 cm/s AV Peak Gradient 19.6 mmHg AV Mean Velocity 181.5 cm/s AV Mean Gradient 14.0 mmHg AV Velocity Time Integral 49.6 cm LVOT Peak Velocity 103.0 cm/s LVOT Peak Gradient 4.2 mmHg LVOT Velocity Time Integral 21.5 cm MV Area PHT 3.4 cm??? Mitral E Point Velocity 87.7 cm/s Mitral A Point Velocity 0.6 cm/s Mitral E to A Ratio 147.4 MV Deceleration Time 222.3 ms MV E' Velocity 6.7 cm/s Mitral E to MV E' Ratio 13.2 TR Peak Velocity 289.6 cm/s TR Peak Gradient 33.5 mmHg Right Ventricular Systolic Press 37.5 mmHg FINDINGS Left Ventricle Moderately increased left ventricular wall thickness. Left ventricular cavity size normal. Normal left ventricular systolic function with no obvious regional wall motion abnormalities. Left ventricular ejection fraction is estimated at 55 %. Right Ventricle Mild right ventricular dilatation. Mild pulmonary hypertension. Right Atrium Moderate right atrial dilatation. Left Atrium Moderately increased left atrial volume. Mildly increased left atrial area. Mitral Valve Structurally normal mitral valve. Mild mitral regurgitation. Aortic Valve Mild aortic stenosis with a peak gradient of 20 mmHg and a mean gradient of 14 mmHg. Tricuspid Valve Structurally normal tricuspid valve. [id number] tricuspid regurgitation. Pulmonic Valve Trace pulmonic regurgitation. Pericardium No pericardial effusion. Aorta Normal size aortic root and proximal ascending aorta. CONCLUSIONS Left ventricular ejection fraction is estimated at 55 %. No obvious regional wall motion abnormalities. Moderately increased left ventricular wall thickness. Moderate biatrial dilatation Mild aortic stenosis with mean gradient of 14 mmHg Mild right ventricular dilatation. RVSP estimated at 37 mmHg Epicardial fat with no pericardial effusion Previewed by: Dr Fran Carbajal (Electronically Signed) Final Date: 22 July 2023 16:51
[2023-07-22] MEDS ORDERED: POTASSIUM CHLORIDE ER 20 MEQ TAB.ER PO STA (19:28)
--- NOTE | 2023-07-22 19:32 | P.PN ---
Progress Note - Text Progress Note Date: 07/22/23 Informed by the ED RN at around 0400 that the patient was inadvertently given calcium gluconate 1 g IV and Kayexalate 15 g by mouth which were both ordered for a different patient. The patient was continued on tele monitoring and laboratory evaluation. Discussed with the RN in detail regarding monitoring of bowel movements.
[2023-07-22] MEDS: atenoloL 50 MG TAB PO SCH (19:53)
[2023-07-23] MEDS: PANTOPRAZOLE 40 MG TABLET PO SCH (06:53)
[2023-07-23] MEDS: HEPARIN SOD,PORK IN 0.45% NACL 25,000 UNIT in 0.45% NACL 1 250ML.BAG IV SCH (08:11)
[2023-07-23] MEDS: FUROSEMIDE 10 MG/ML 4 ML VIAL IV SCH ×2 (08:15→19:40)
[2023-07-23] MEDS: lisinopriL 20 MG TAB PO SCH (08:15)
[2023-07-23] MEDS: CLOTRIMAZOLE TROCHE 10 MG TROCHE MUCOUS MEM SCH ×4 (08:15→19:40)
[2023-07-23] MEDS: MINERAL OIL-WHITE PETROLATUM 120 GM JAR TOPICAL SCH ×2 (08:15→19:40)
[2023-07-23] MEDS: APIXABAN 5 MG TAB PO SCH ×2 (08:59→19:39)
[2023-07-23 09:26] LABS: HCT 34.9 % (39.0-53.0); HGB 11.7 gm/dL (13.0-17.5); MCH 34.3 pg (25.0-35.0); MCHC 33.4 g/dL (31.0-37.0); MCV 102.7 fL (80.0-100.0); Macrocytosis Slight; Mean Platelet Volume 7.3; Platelet Count 275 k/uL (150-450); RBC 3.39 m/uL (4.30-5.90); WBC 9.2 k/uL (3.8-10.6)
[2023-07-23 10:01] LABS: African American GFR (CKD) 75 (>60 ml/min/1.73 sqM); Anion Gap 14 mmol/L; Blood Urea Nitrogen 22 mg/dL (9-20); Calcium 9.5 mg/dL (8.4-10.2); Carbon Dioxide 22 mmol/L (22-30); Chloride 101 mmol/L (98-107); Glucose 122 mg/dL (74-99); Non-African American GFR(CKD) 65 (>60 ml/min/1.73 sqM); Potassium 3.6 mmol/L (3.5-5.1); Sodium 137 mmol/L (137-145)
--- NOTE | 2023-07-23 11:47 | P.PN ---
Subjective Progress Note Date: 07/23/23 77-year-old male patient was hospitalized for worsening shortness of breath. The patient has been having progressive exertional dyspnea and the patient has also noted some increased lower extremity edema. The patient has history of eczema/skin disorder and the patient was started on high-dose steroids approximately 8 weeks ago by the finishing range supervisor which she completed approximately 2 weeks ago. He has seen dematology and he was given skin biopsy and a final diagnosis has not achieved and the skin lesions improved while on therapy and has recurred since. He was given also steroid cream. Along with intake of steroids, the patient developed significant fluid retention lower extremity edema. No orthopnea. No chest pain. No history of smoking and the patient's quit smoking a few years back. In the emergency department, the patient was found to be in atrial fibrillation with a controlled rate. The patient a proBNP level of 2200. Chest x-ray showed no acute abnormalities. Cognition profile was within normal limits. There was no was 11.8. EKG showed a new onset atrial fibrillation with a controlled rate. Accordingly, the patient was hospitalized. The patient was started on IV heparin. The patient is also on Lasix 40 mg IV every 12 hours. Echo cardiac, was also ordered. He has KRISTIE and he has been on CPAP therapy. On today's evaluation of 07/22/2023 patient for a follow-up. The patient is doing well. No specific complaints. He remains in atrial fibrillation. Rate is controlled for now. Echocardiogram is to be done today. The patient remains on IV heparin. The patient is still taking Lasix 40 mg IV every 12 hours and is producing adequate amount of urine output. He is off steroids. His skin lesions do not to be related to be pityriasis. He was also able to bring in his CPAP machine. I checked the machine. The patient is set at a pressure of 15 cm of water on outpatient basis. The patient's WBC count at 7.2, hemoglobin 11.7, PTT therapeutic at 58. BUN is 19 with a creatinine of 0.9. ProBNP level is 2200 and the TSH is at 1.7. Troponins of 0.01 respectively 2. He has no specific complaints otherwise for now. He feels well. On 07/23/2023, the patient is being seen for a follow-up. Doing well. He is on room air oxygen. He remains in atrial fibrillation. The patient was also started on anticoagulation. Is currently on anticoagulation with Eliquis 10 mg by mouth twice a day. Noted a CT angiogram was also done and the patient was found to have subsegmental small pulmonary emboli in the lower lobes bilaterally. As such, the patient is going to require anticoagulation for his A. fib and pulmonary embolism. His rash is stable. He is ambulating. No significant shortness of breath. No episodes of 9.2, hemoglobin is 11.7, BUN is at 22 with a creatinine of 1.1. His lower extremity edema is improved and the patient remains on Lasix 40 mg IV every 12 hours. The patient remains in negative fluid balance. Objective - Vital Signs Vital signs: Vital Signs Temp 97.7 F 07/23/23 08:00 Pulse 78 07/23/23 08:00 Resp 18 07/23/23 08:00 BP 107/73 07/23/23 08:00 Pulse Ox 98 07/23/23 08:00 FiO2 Intake & Output 07/22/23 07/23/23 07/23/23 18:59 06:59 18:59 Intake Total 387.406 0 350 Output Total 200 200 Balance 387.406 -200 150 Weight 117.48 kg 111.6 kg Intake: Intake, IV Titration 167.406 0 Amount Heparin Sod,Pork in 0.45% 167.406 0 NaCl 25,000 unit In 0.45 % NaCl 1 250ml.bag @ 18 UNITS/KG/HR 21.146 mls/hr IV .[id number] [facility] Rx#: [id number] Oral 220 350 Output: Urine 200 200 Other: Voiding Method Toilet Urinal # Voids 1 - Exam General: non toxic, no distress, appears at stated age, the patient is currently on room air oxygen with a pulse ox of 99% Derm: warm, dry Head: atraumatic, normocephalic, symmetric Eyes: EOMI, no lid lag, anicteric sclera Mouth: no lip lesion, mucus membranes moist Cardiovascular: S1S2 irregular consistent with atrial fibrillation, no murmur Lungs: CTA bilateral, no rhonchi, no rales , no accessory muscle use Abdominal:Abdominal exam revealed normal bowel sounds. The abdomen was soft, non-tender, and without masses, organomegaly, or appreciable enlargement of the abdominal aorta. Ext: no gross muscle atrophy, 3+ pitting edema bilateral lower extremity, no contractures Neuro:Neurologically, the patient is awake and alert and the patient does not have any focal neurological deficit. Cranial nerves are essentially intact. Psych: Alert, oriented, appropriate affect - Labs CBC & Chem 7: 07/23/23 09:10 07/23/23 09:10 Labs: Abnormal Lab Results - Last 24 Hours (Table) 07/22/23 07/23/23 07/23/23 Range/Units 15:45 00:49 09:10 RBC 3.39 L (4.30-5.90) m/uL Hgb 11.7 L (13.0-17.5) gm/dL Hct 34.9 L (39.0-53.0) % MCV 102.7 H (80.0-100.0) fL APTT 157.5 H* 100.6 H* (22.0-30.0) sec BUN (9-20) mg/dL Glucose (74-99) mg/dL 07/23/23 Range/Units 09:10 RBC (4.30-5.90) m/uL Hgb (13.0-17.5) gm/dL Hct (39.0-53.0) % MCV (80.0-100.0) fL APTT (22.0-30.0) sec BUN 22 H (9-20) mg/dL Glucose 122 H (74-99) mg/dL Assessment and Plan Plan: New-onset A. fib, rate controlled, consider underlying CHF in proBNP is mildly elevated. The echocardiogram showed a preserved LV function, moderate LVH, mild aortic stenosis, RVSP is around 37 Mild aortic stenosis Bilateral lower lobe subsegmental pulmonary emboli, currently on anticoagulation with Eliquis Lower extremity edema, currently under investigation. This is related to fluid overload and the patient has no significant cardiomyopathy. The patient is improving on Lasix Hypertension History of eczema/pityriasis skin rash that was steroid responsive and this has recurred since off steroids. History of steroid use currently off steroids. This was given to the patient for skin rash. I saw him this was related to pityriasis Acid reflux Obesity and he is on CPAP therapy at 15 cm of water Impaired hearing and he has been exposed to agent orange Plan Continue Atenolol for rate control and the patient is receiving 50 mg by mouth daily Continue diuretics, currently on Lasix 40 mg IV every 12 hours for another 24 hours Echocardiogram to evaluate the LV, was completed and the patient has an EF around 55%. No cervical wall motion abnormalities. Mild aortic stenosis Anticoagulation with Eliquis Patient is currently on room air oxygen. Chest x-ray shows no acute pulmonary abnormalities Allow the patient to use home CPAP therapy Keep off steroids We'll continue to follow
--- NOTE | 2023-07-23 12:07 | P.PN ---
Subjective Progress Note Date: 07/23/23 History of present illness: This is a 77-year-old male with past medical history of hypertension, gastroes ophageal reflux disease, eczema, Agent Scott exposure in [place], recent treatment for thrush. Patient does not follow with a hygiene assistant and denies any previous cardiac history. Patient gives history that he had a bad rash that was red and oozing was following with [facility] in [place] was recently sent to dermatology and has been on a prednisone taper starting at 80 mg daily for 7 days.patient states he completed prednisone about 2 weeks ago and the rash started coming back. He states for the past 2-3 weeks he's had some shortness of breath and burning sensation in the midst part of his chest as well as lower extremity edema. He had a recheck with [facility] in [place] and has an appointment with cardiology at the end of July. Because the chest burning has been going on since May worse when he bends over and is worse with activity. He also has nausea with it and lightheadedness. He states he will often sit down for 5 minutes and his symptoms improve. He denies having a history of diabetes, CVA or TIA and no history of atrial fibrillation. Also reported that he was at his PCP and EKG showed A. fib and he was sent in the emergency center. patient has subsequently been found to have multiple PE on CAT scan, and started on heparin drip. Patient is also been started on Lasix 40 mg IV every 12 hours. EKG atrial fibrillation with controlled rate 72 bpm Chest x-ray: No acute process CTA of the chest revealed scattered filling defects compatible with multiple pulmonary emboli. No evidence of right heart strain. Hepatis steatosis WBC 7.2, hemoglobin 11.7, platelet count 294. D-dimer 3.57. Sodium 133 otherwise electrolytes and renal function are normal. Blood sugar 107. TSH 1.790 troponin negative 1. ProBNP 2200 Home cardiac medications: Atenolol 50 mg at bedtime, chlorthalidone 25 mg at bedtime, lisinopril 40 mg daily 07/23 Patient is seen today in follow-up on the cardiac stepdown unit. He states his breathing is fine today at rest but he does have dyspnea on exertion. He denies dizziness which is improved. He has been urinating a lot. Patient has been maintained on IV Lasix 40 mg every 12 hours. Appears he is down 6 kg. Echocardiogram has been reviewed with the patient. Heart rate is in the 60s to 80s, blood pressure 128/83 and pulse ox 97% on room air. Repeat blood work reveals hemoglobin 11.7. BUN 22, creatinine 1.1 and potassium 3.6. Physical examination: Gen: This is a 77-year-old male lying in bed and appears to be in no acute distress VS: reviewed HEENT: Head is atraumatic, normocephalic. Pupils equal, round. Sclerae is a nicteric. NECK: Supple. No JVD. . LUNGS: Clear to auscultation. No wheezes or rhonchi. No intercostal retractions. HEART: Irregular rate and rhythm. No murmur. ABDOMEN: Soft No tenderness. EXTREMITIES: + pedal edema. No calf tenderness. NEUROLOGICAL: Patient is awake, alert and oriented x3. Assessment: Pulmonary emboli, no right heart strain on CT New onset atrial fibrillation with controlled rate Acute heart failure Chest pain and Dyspnea on exertion concerning for underlying coronary artery disease Bilateral lower extremity edema Gastroesophageal reflux disease Hypertension Eczema/rash Plan: Continue IV Lasix for another 24 hours Monitor I&O, daily weights, electrolytes and renal function Plan for cardiac catheterization or stress test as an outpatient Further recommendations to follow based upon clinical course Anticipate he will be ready for discharge tomorrow. Nurse practitioner note has been reviewed, I agree with documented findings and plan of care. Patient was seen and examined. Objective - Vital Signs Vital signs: Vital Signs Temp 97.7 F 07/23/23 08:00 Pulse 78 07/23/23 08:00 Resp 18 07/23/23 08:00 BP 107/73 07/23/23 08:00 Pulse Ox 98 07/23/23 08:00 FiO2 Intake & Output 07/22/23 07/23/23 07/23/23 18:59 06:59 18:59 Intake Total 387.406 0 350 Output Total 200 200 Balance 387.406 -200 150 Weight 117.48 kg 111.6 kg Intake: Intake, IV Titration 167.406 0 Amount Heparin Sod,Pork in 0.45% 167.406 0 NaCl 25,000 unit In 0.45 % NaCl 1 250ml.bag @ 18 UNITS/KG/HR 21.146 mls/hr IV .[id number] [facility] Rx#: [id number] Oral 220 350 Output: Urine 200 200 Other: Voiding Method Toilet Urinal # Voids 1 - Labs CBC & Chem 7: 07/23/23 09:10 07/23/23 09:10 Labs: Abnormal Lab Results - Last 24 Hours (Table) 07/22/23 07/23/23 07/23/23 Range/Units 15:45 00:49 09:10 RBC 3.39 L (4.30-5.90) m/uL Hgb 11.7 L (13.0-17.5) gm/dL Hct 34.9 L (39.0-53.0) % MCV 102.7 H (80.0-100.0) fL APTT 157.5 H* 100.6 H* (22.0-30.0) sec BUN (9-20) mg/dL Glucose (74-99) mg/dL 07/23/23 Range/Units 09:10 RBC (4.30-5.90) m/uL Hgb (13.0-17.5) gm/dL Hct (39.0-53.0) % MCV (80.0-100.0) fL APTT (22.0-30.0) sec BUN 22 H (9-20) mg/dL Glucose 122 H (74-99) mg/dL
--- NOTE | 2023-07-23 12:35 | P.PN ---
Subjective Progress Note Date: 07/23/23 77-year-old male with PMH of hypertension, GERD, eczema presents to the ED for lower extremity swelling and shortness of breath. reports progressively worsening exertional shortness of breath over the past 3 years. He was recently started on a slow prednisone taper over 8 weeks (starting at 80mg) by his digital imager which completed 2 weeks ago. Since prednisone, he reports excessive lower extremity swelling. He denies any orthopnea. He denies any PND. He denies any chest pain. reports abdominal distention but denies any changes in urination or bowel habits. He has a remote history of smoking cigarettes but quit many years ago. He went to go see his PCP, EKG showed rate control atrial fibrillation, patient was urged to come to the ED. In the ED, he underwent extensive evaluation. Vital signs were stable. CBC showed hemoglobin of 11.8. Coagulation panel within normal limits. CMP showed sodium of 132, glucose 105 and albumin of 3.4. Troponin 0.015. BNP 2200. Chest x-ray negative. EKG showed atrial fibrillation. 07/22 Patient was seen and examined. No acute events overnight. Continued SOB and LE swelling. Apparently he was given a dose of Kayexalate and calcium gluconate that was intended to be ordered for another patient by nursing. D- Dimer 3.57. CTA chest was ordered + for PE. LE venous doppler negative for DVT. Repeat troponin 0.018. TSH 1.79. APTT 94.9. BMP shows Na 133, glucose 107. A1c 6.6. CBC shows Hg 11.7 with MCV 100.6. He is continued of Lasix 40 mg IV BID and Heparin drip (switched to high intensity due to PE diagnosis). Cardiology recommends continued diuresis and Echo with possible cath. Pulmonology recommends continued diuresis and IV heparin. 07/23 Patient was seen and examined. No acute events overnight. Cardiology recommends one more day of diuresis. Discussed with COLTON Chaidez to switch to Eliquis, stable from pulmonary perspective. APTT 100.6. CBC shows Hg 11.7, MCV 102.7. BMP BUN 22, glucose 122. Echo shows EF 55% moderate LV thickness. General: non toxic, no distress, appears at stated age Derm: warm, dry Head: atraumatic, normocephalic, symmetric Eyes: EOMI, no lid lag, anicteric sclera Cardiovascular: S1S2 irregular, no murmur Lungs: CTA bilateral, no rhonchi, no rales , no accessory muscle use Ext: no gross muscle atrophy, 2+ pitting edema bilateral lower extremity, no contractures Neuro: no focal neuro deficits Psych: Alert, oriented, appropriate affect Pulmonary embolus Bilateral lower extremity swelling New onset atrial fibrillation Chronic condition: hypertension, GERD, eczema Based on my assessment of this patient, this patient meets a high complexity level of care. Patient has an acute diagnosis of new onset A-Fib that poses a threat to life or bodily function. He has progressively worsening LE swelling over the past 2 weeks. Found to have PE. Pulmonary embolus: Switch heparin drip to Eliquis. Hypercoag workup in the outpatient setting. Bilateral lower extremity swelling: Likely related to prolonged steroid use. BNP within range for age. CXR negative. Advised LE elevation. Echo as above. Continue Lasix 40 mg IV BID. New onset atrial fibrillation: AILEEN VASC 3. Continue Heparin drip. Telemetry monitoring. Obtain Echo. Continue Atenolol 50 mg PO QHS. I have reviewed the following sales representative consultant notes: Pulm, Cardio note. I have reviewed the results of the following tests: As above I have ordered the following tests: BMP to monitor renal function while on Lasix. I have discussed the care of this patient with the following independent historian: I have independently interpreted the following test below: I have discussed the management of this patient with the following physician: Discussed with Dr. Bonner. Objective - Vital Signs Vital signs: Vital Signs Temp 97.9 F 07/23/23 11:54 Pulse 80 07/23/23 11:54 Resp 16 07/23/23 11:54 BP 128/83 07/23/23 11:54 Pulse Ox 97 07/23/23 11:54 FiO2 Intake & Output 07/22/23 07/23/23 07/23/23 18:59 06:59 18:59 Intake Total 387.406 0 350 Output Total 200 675 Balance 387.406 -200 -325 Weight 117.48 kg 111.6 kg Intake: Intake, IV Titration 167.406 0 Amount Heparin Sod,Pork in 0.45% 167.406 0 NaCl 25,000 unit In 0.45 % NaCl 1 250ml.bag @ 18 UNITS/KG/HR 21.146 mls/hr IV .[id number] [facility] Rx#: [id number] Oral 220 350 Output: Urine 200 675 Other: Voiding Method Toilet Urinal # Voids 1 - Labs CBC & Chem 7: 07/23/23 09:10 07/23/23 09:10 Labs: Abnormal Lab Results - Last 24 Hours (Table) 07/22/23 07/23/23 07/23/23 Range/Units 15:45 00:49 09:10 RBC 3.39 L (4.30-5.90) m/uL Hgb 11.7 L (13.0-17.5) gm/dL Hct 34.9 L (39.0-53.0) % MCV 102.7 H (80.0-100.0) fL APTT 157.5 H* 100.6 H* (22.0-30.0) sec BUN (9-20) mg/dL Glucose (74-99) mg/dL 07/23/23 Range/Units 09:10 RBC (4.30-5.90) m/uL Hgb (13.0-17.5) gm/dL Hct (39.0-53.0) % MCV (80.0-100.0) fL APTT (22.0-30.0) sec BUN 22 H (9-20) mg/dL Glucose 122 H (74-99) mg/dL
[2023-07-23] MEDS: atenoloL 50 MG TAB PO SCH (19:40)
[2023-07-24] MEDS: PANTOPRAZOLE 40 MG TABLET PO SCH (06:49)
[2023-07-24] MEDS: CLOTRIMAZOLE TROCHE 10 MG TROCHE MUCOUS MEM SCH (07:31)
[2023-07-24] MEDS: lisinopriL 20 MG TAB PO SCH (07:32)
[2023-07-24] MEDS: FUROSEMIDE 10 MG/ML 4 ML VIAL IV SCH (07:32)
[2023-07-24] MEDS: MINERAL OIL-WHITE PETROLATUM 120 GM JAR TOPICAL SCH (07:32)
[2023-07-24] MEDS: APIXABAN 5 MG TAB PO SCH (07:32)
[2023-07-24 10:34] LABS: African American GFR (CKD) 77 (>60 ml/min/1.73 sqM); Anion Gap 14 mmol/L; Blood Urea Nitrogen 24 mg/dL (9-20); Calcium 9.5 mg/dL (8.4-10.2); Carbon Dioxide 26 mmol/L (22-30); Chloride 99 mmol/L (98-107); Glucose 112 mg/dL (74-99); Non-African American GFR(CKD) 66 (>60 ml/min/1.73 sqM); Potassium 3.3 mmol/L (3.5-5.1); Sodium 139 mmol/L (137-145)
[2023-07-24] MEDS ORDERED: POTASSIUM CHLORIDE ER 20 MEQ TAB.ER PO STA (11:07)
--- NOTE | 2023-07-24 11:33 | P.DS ---
Providers Date of admission: 07/22/23 13:34 Expected date of discharge: 07/24/23 Attending physician: Geovanna Bolanos MD Consults: 07/21/23 15:57 Consult Physician Urgent Consulting Provider: [facility] Consult Reason/Comments: new onset afib, lower extremity edema Do you want consulting provider notified?: Yes 07/21/23 18:23 Consult Physician Routine Consulting Provider: Jeanie Bonner Consult Reason/Comments: dyspnea Do you want consulting provider notified?: Yes Primary care physician: [facility] Course: 77-year-old male with PMH of hypertension, GERD, eczema presents to the ED for lower extremity swelling and shortness of breath. reports progressively worsening exertional shortness of breath over the past 3 years. He was recently started on a slow prednisone taper over 8 weeks (starting at 80mg) by his clocksmith which completed 2 weeks ago. Since prednisone, he reports excessive lower extremity swelling. He denies any orthopnea. He denies any PND. He denies any chest pain. reports abdominal distention but denies any changes in urination or bowel habits. He has a remote history of smoking cigarettes but quit many years ago. He went to go see his PCP, EKG showed rate control atrial fibrillation, patient was urged to come to the ED. In the ED, he underwent extensive evaluation. Vital signs were stable. CBC showed hemoglobin of 11.8. Coagulation panel within normal limits. CMP showed sodium of 132, glucose 105 and albumin of 3.4. Troponin 0.015. BNP 2200. Chest x-ray negative. EKG showed atrial fibrillation. 07/22 Patient was seen and examined. No acute events overnight. Continued SOB and LE swelling. Apparently he was given a dose of Kayexalate and calcium gluconate that was intended to be ordered for another patient by nursing. D- Dimer 3.57. CTA chest was ordered + for PE. LE venous doppler negative for DVT. Repeat troponin 0.018. TSH 1.79. APTT 94.9. BMP shows Na 133, glucose 107. A1c 6.6. CBC shows Hg 11.7 with MCV 100.6. He is continued of Lasix 40 mg IV BID and Heparin drip (switched to high intensity due to PE diagnosis). Cardiology recommends continued diuresis and Echo with possible cath. Pulmonology recommends continued diuresis and IV heparin. 07/23 Patient was seen and examined. No acute events overnight. Cardiology recommends one more day of diuresis. Discussed with Dr. Bonner, OK to switch to Eliquis, stable from pulmonary perspective. APTT 100.6. CBC shows Hg 11.7, MCV 102.7. BMP BUN 22, glucose 122. Echo shows EF 55% moderate LV thickness. 07/24 Patient was seen and examined. Lasix IV switched to 40 mg PO QD. Discussed with Dr. Bonner, cleared for DC on Eliquis. Follow up with PCP within 1-2 days, Dr. Naik within 1 week, Dr. Corral within [address] Carbajal within 1 week of discharge. Advised he will be on Eliquis life long due to h/o A-Fib. Advised of risk of bleeding and to only use Lasix PRN for swelling. General: non toxic, no distress, appears at stated age Derm: warm, dry Head: atraumatic, normocephalic, symmetric Eyes: EOMI, no lid lag, anicteric sclera Cardiovascular: S1S2 irregular, no murmur Lungs: CTA bilateral, no rhonchi, no rales , no accessory muscle use Ext: no gross muscle atrophy, 1+ pitting edema bilateral lower extremity, no contractures Neuro: no focal neuro deficits Psych: Alert, oriented, appropriate affect Discharge Diagnosis: Pulmonary embolus Bilateral lower extremity swelling Hypokalemia New onset atrial fibrillation Chronic condition: hypertension, GERD, eczema This complex discharge took 35 minutes to complete. Patient Condition at Discharge: Stable Plan - Discharge Summary Discharge Rx Participant: No New Discharge Prescriptions: New Furosemide [Lasix] 40 mg PO DAILY PRN #30 tablet PRN Reason: Swelling Apixaban [Eliquis Starter Pack (for VTE)] 5 - 10 mg PO DIRECTED 30 Days #1 each Continue atenoloL [Tenormin] 50 mg PO HS Clotrimazole Jean-Pierre [Mycelex Jean-Pierre] 10 mg MUCOUS MEM QID Chlorhexidine Gluconate [Peridex] 15 ml PO QID Ceramides 1,3,6-II [Cerave Moisturizing] 1 applic TOPICAL BID lisinopriL 40 mg PO DAILY Chlorthalidone 25 mg PO HS Petrolatum, White [Aquaphor] 1 applic TOPICAL BID PRN PRN Reason: Dry Skin Omeprazole [PriLOSEC] 20 mg PO AC-BRKFST Clobetasol 0.05% Solution 1 applic TOPICAL BID Urea 20% Cream 1 applic TOPICAL BID PRN PRN Reason: skin issues/arms Discharge Medication List Ceramides 1,3,6-II [Cerave Moisturizing] 1 applic TOPICAL BID 07/21/23 [History] Chlorhexidine Gluconate [Peridex] 15 ml PO QID 07/21/23 [History] Chlorthalidone 25 mg PO HS 07/21/23 [History] Clobetasol 0.05% Solution 1 applic TOPICAL BID 07/21/23 [History] Clotrimazole Jean-Pierre [Mycelex Jean-Pierre] 10 mg MUCOUS MEM QID 07/21/23 [History] Omeprazole [PriLOSEC] 20 mg PO AC-BRKFST 07/21/23 [History] Petrolatum, White [Aquaphor] 1 applic TOPICAL BID PRN 07/21/23 [History] Urea 20% Cream 1 applic TOPICAL BID PRN 07/21/23 [History] atenoloL [Tenormin] 50 mg PO HS 07/21/23 [History] lisinopriL 40 mg PO DAILY 07/21/23 [History] Apixaban [Eliquis Starter Pack (for VTE)] 5 - 10 mg PO DIRECTED 30 Days #1 each 07/24/23 [Rx] Furosemide [Lasix] 40 mg PO DAILY PRN #30 tablet 07/24/23 [Rx] Follow up Appointment(s)/Referral(s): Fran Carbajal MD [Medical Doctor] - 1 Week Soren Naik [STAFF PHYSICIAN] - 1 Week Gretta Carson PAC [Primary Care Provider] - 1-2 days Jeanie Bonner MD [STAFF PHYSICIAN] - 1 Week Discharge Disposition: HOME SELF-CARE
--- NOTE | 2023-07-24 12:32 | P.PN ---
Subjective Progress Note Date: 07/24/23 77-year-old male patient was hospitalized for worsening shortness of breath. The patient has been having progressive exertional dyspnea and the patient has also noted some increased lower extremity edema. The patient has history of eczema/skin disorder and the patient was started on high-dose steroids approximately 8 weeks ago by the emergency vehicle driver which she completed approximately 2 weeks ago. He has seen dematology and he was given skin biopsy and a final diagnosis has not achieved and the skin lesions improved while on therapy and has recurred since. He was given also steroid cream. Along with intake of steroids, the patient developed significant fluid retention lower extremity edema. No orthopnea. No chest pain. No history of smoking and the patient's quit smoking a few years back. In the emergency department, the patient was found to be in atrial fibrillation with a controlled rate. The patient a proBNP level of 2200. Chest x-ray showed no acute abnormalities. Cognition profile was within normal limits. There was no was 11.8. EKG showed a new onset atrial fibrillation with a controlled rate. Accordingly, the patient was hospitalized. The patient was started on IV heparin. The patient is also on Lasix 40 mg IV every 12 hours. Echo cardiac, was also ordered. He has KRISTIE and he has been on CPAP therapy. On today's evaluation of 07/22/2023 patient for a follow-up. The patient is doing well. No specific complaints. He remains in atrial fibrillation. Rate is controlled for now. Echocardiogram is to be done today. The patient remains on IV heparin. The patient is still taking Lasix 40 mg IV every 12 hours and is producing adequate amount of urine output. He is off steroids. His skin lesions do not to be related to be pityriasis. He was also able to bring in his CPAP machine. I checked the machine. The patient is set at a pressure of 15 cm of water on outpatient basis. The patient's WBC count at 7.2, hemoglobin 11.7, PTT therapeutic at 58. BUN is 19 with a creatinine of 0.9. ProBNP level is 2200 and the TSH is at 1.7. Troponins of 0.01 respectively 2. He has no specific complaints otherwise for now. He feels well. On 07/23/2023, the patient is being seen for a follow-up. Doing well. He is on room air oxygen. He remains in atrial fibrillation. The patient was also started on anticoagulation. Is currently on anticoagulation with Eliquis 10 mg by mouth twice a day. Noted a CT angiogram was also done and the patient was found to have subsegmental small pulmonary emboli in the lower lobes bilaterally. As such, the patient is going to require anticoagulation for his A. fib and pulmonary embolism. His rash is stable. He is ambulating. No significant shortness of breath. No episodes of 9.2, hemoglobin is 11.7, BUN is at 22 with a creatinine of 1.1. His lower extremity edema is improved and the patient remains on Lasix 40 mg IV every 12 hours. The patient remains in negative fluid balance. On today's evaluation of 07/24/2023, the patient is doing well. No complaints on room air oxygen. Ambulating. He remains on anticoagulation with Eliquis. He has been diuresed adequately with Lasix and he feels much better and the patient was receiving Lasix 40 mg IV every 12 hours. Lower extremity Doppler was negative for DVT. The patient remains in atrial fibrillation. BUN is at 24 with a creatinine of 1.08. The patient's body weight is down 210 kg which is 7 kg less compared to his admission. Objective - Vital Signs Vital signs: Vital Signs Temp 97.8 F 07/24/23 08:00 Pulse 60 07/24/23 08:00 Resp 18 07/24/23 08:00 BP 159/92 07/24/23 08:00 Pulse Ox 99 07/24/23 08:00 FiO2 Intake & Output 07/23/23 07/24/23 07/24/23 18:59 06:59 18:59 Intake Total 570 350 Output Total 775 200 200 Balance -205 -200 150 Weight 110.4 kg Intake: Oral 570 350 Output: Urine 775 200 200 Other: Voiding Method Toilet Toilet Toilet Urinal Urinal Urinal # Voids 1 # Bowel Movements 1 - Exam General: non toxic, no distress, appears at stated age, the patient is currently on room air oxygen with a pulse ox of 99% Derm: warm, dry Head: atraumatic, normocephalic, symmetric Eyes: EOMI, no lid lag, anicteric sclera Mouth: no lip lesion, mucus membranes moist Cardiovascular: S1S2 irregular consistent with atrial fibrillation, no murmur Lungs: CTA bilateral, no rhonchi, no rales , no accessory muscle use Abdominal:Abdominal exam revealed normal bowel sounds. The abdomen was soft, non-tender, and without masses, organomegaly, or appreciable enlargement of the abdominal aorta. Ext: no gross muscle atrophy, 3+ pitting edema bilateral lower extremity, no contractures Neuro:Neurologically, the patient is awake and alert and the patient does not have any focal neurological deficit. Cranial nerves are essentially intact. Psych: Alert, oriented, appropriate affect - Labs CBC & Chem 7: 07/23/23 09:10 07/24/23 08:48 Labs: Abnormal Lab Results - Last 24 Hours (Table) 07/24/23 Range/Units 08:48 Potassium 3.3 L (3.5-5.1) mmol/L BUN 24 H (9-20) mg/dL Glucose 112 H (74-99) mg/dL Assessment and Plan Plan: New-onset A. fib, rate controlled, consider underlying CHF in proBNP is mildly elevated. The echocardiogram showed a preserved LV function, moderate LVH, mild aortic stenosis, RVSP is around 37 Mild aortic stenosis Bilateral lower lobe subsegmental pulmonary emboli, currently on anticoagulation with Eliquis Lower extremity edema, currently under investigation. This is related to fluid overload and the patient has no significant cardiomyopathy. The patient is improving on Lasix Hypertension History of eczema/pityriasis skin rash that was steroid responsive and this has recurred since off steroids. History of steroid use currently off steroids. This was given to the patient for skin rash. I saw him this was related to pityriasis Acid reflux Obesity and he is on CPAP therapy at 15 cm of water Impaired hearing [place] and he has been exposed to agent orange Plan Continue Atenolol for rate control and the patient is receiving 50 mg by mouth daily Switch this patient's oral Lasix Echocardiogram to evaluate the LV, was completed and the patient has an EF around 55%. No cervical wall motion abnormalities. Mild aortic stenosis Anticoagulation with Eliquis Patient is currently on room air oxygen. Chest x-ray shows no acute pulmonary abnormalities Allow the patient to use home CPAP therapy Keep off steroids Patient to be discharged home today. Will be glad to follow this patient on outpatient basis.
[2023-07-24 12:51] VITALS: BP 147/79; PULSE 63; RESP 16; TEMP 98
--- NOTE | 2023-07-27 09:23 | CDI ---
Documentation Clarification Form Date: 07/27/2023 08:57:48 AM From: Smiley Valderrama RN, CCDS Email: [email or web address] Admit Date: 07/22/2023 01:34:00 PM Patient Name: Kilo Yeh Visit Number: [id number] Discharge Date: 07/24/2023 01:06:00 PM ATTENTION: The Clinical Documentation Specialists (CDI) and [facility] Coding Staff appreciate your assistance in clarifying documentation. Please respond to the clarification below the line at the bottom and electronically sign. The CDI & [facility] Coding staff will review the response and follow-up if needed. Please note: Queries are made part of the Legal Health Record. If you have any questions, please contact the author of this message via ITS. Dr. Rafita Drake Your patient has the documented diagnosis of acute heart failure in your progress notes. Additional information regarding the type of CHF is requested. History/Risk Factors: HTRN, GERD, eczema. Presented to ED for LE swelling and shortness of breath. Admitted with new onset A fib, PE and acute heart failure Clinical Indicators: 07/21 Pulmonary consult: "New-onset A. fib, rate controlled, consider underlying CHF if proBNP is mildly elevated." 07/22 Cardiology: "Pulmonary emboli, no right heart strain on CT. New onset atrial fibrillation with controlled rate. Acute heart failure. 07/23 Cardiology: "Appears he is down 6 kg. Echocardiogram has been reviewed with the patient." 07/23 Pulmonary: "The echocardiogram showed a preserved LV function, moderate LVH, mild aortic stenosis, RVSP is around 37. 07/21 BNP: 2200 07/22 Echocardiogram Results: EF 55%%; Mild right ventricular dilatation. Mild pulmonary hypertension. Moderate right atrial dilatation. 07/22 CTA: multiple pulmonary emboli. Treatment: IV Lasix 40mg x1 on 07/21; IV Lasix 40mg Q12H 07/21-07/24; Monitor I&O's; daily weights.Plan for cardiac cath and stress test as an outpatient. In your professional opinion, can you please clarify the type of acute heart failure if known? [ X ] Acute Diastolic Heart Failure (preserved EF) [ ] Other, please specify [ ] Unable to determine MTDD
== END 2023-07-24 13:06 | disposition home or self-care (01) | DRG 175 ==
LOC: EC 12:08 → 3SCARD 15:57 → OBSVTOIN 07-22 13:34
PROVIDERS: ADMIT Family Medicine; ATTEND Family Medicine
DX: I26.99 Other pulmonary embolism without acute cor pulmonale (principal); I50.31 Acute diastolic (congestive) heart failure; N17.9 Acute kidney failure, unspecified; I48.91 Unspecified atrial fibrillation; E66.9 Obesity, unspecified; I35.0 Nonrheumatic aortic (valve) stenosis; I11.0 Hypertensive heart disease with heart failure; E87.6 Hypokalemia; K21.9 Gastro-esophageal reflux disease without esophagitis; L40.9 Psoriasis, unspecified; L30.9 Dermatitis, unspecified; Z79.52 Long term (current) use of systemic steroids; Z79.899 Other long term (current) drug therapy; Z79.01 Long term (current) use of anticoagulants; G47.33 Obstructive sleep apnea (adult) (pediatric); Z88.6 Allergy status to analgesic agent; Z68.34 Body mass index [BMI] 34.0-34.9, adult; K76.0 Fatty (change of) liver, not elsewhere classified
CPT/HCPCS: 36415; 71046; 71275; 80048; 80053; 80061; 83036; 83880; 84443; 84484; 85025; 85027; 85379; 85610; 85730; 93005; 93306; 93970; 96365; 96366; 96375; 96376; 99291

== ENCOUNTER → 2023-07-21 | Outpatient (CLI) | payer MEDICARE ==
--- NOTE | 2023-07-21 11:07 | XR ---
EXAMINATION TYPE: XR chest 2V DATE OF EXAM: 07/21/2023 10:54 AM COMPARISON: None TECHNIQUE: XR chest 2V Frontal and lateral views of the chest. CLINICAL INDICATION:Male, 77 years old with history of [id number] SOB,CHEST PAIN; FINDINGS: Lungs/Pleura: There is no evidence of pleural effusion, focal consolidation, or pneumothorax. Pulmonary vascularity: Unremarkable. Heart/mediastinum: Cardiomediastinal silhouette is unremarkable. Musculoskeletal: No acute osseous pathology. Mild degenerative changes of the thoracic spine. IMPRESSION: No acute cardiopulmonary disease/process.
== END | disposition home or self-care (01) ==
LOC: RADXRYALE 10:43
PROVIDERS: ATTEND Physician Assistant
DX: R06.02 Shortness of breath (principal); R07.89 Other chest pain
CPT/HCPCS: 71046

== ENCOUNTER → 2024-10-17 | Day surgery (SDC) | payer MEDICARE ==
[~2024-10-17] MED LIST: ACITRETIN 25 MG PO SCH; ALPRAZolam 0.25 MG TAB PO PRN; APIXABAN 5 MG TAB PO SCH; ATORVASTATIN 80 MG TAB PO STA; ATROPINE SULFATE 0.1 MG/ML 10ML SYRINGE IV PRN; CHLORTHALIDONE 50 MG PO SCH; CLOPIDOGREL 75 MG TAB PO SCH; FUROSEMIDE 40 MG TAB PO PRN; HEPARIN SODIUM,PORCINE (1 ML) 2,500 UNIT in SODIUM CHLORIDE 0.9% 250 ML IRRIGATION PRN; HEPARIN SODIUM,PORCINE 10,000 UNIT in SODIUM CHLORIDE 0.9% 1,000 ML IRRIGATION PRN; MAG HYDROX/AL HYDROX/SIMETH 30 ML CUP PO PRN; NITROGLYCERIN SL TABS 0.4 MG TAB SUBLINGUAL PRN; NON FORMULARY DRUG (Fluticasone Propion/Salmeterol [Fluticasone-Salmeterol 500-50] 1 EACH PO SCH; NON FORMULARY DRUG (Lisinopril [Lisinopril] 40 MG Tablet) PO SCH; NON FORMULARY DRUG (Omeprazole 20 MG Capsule.Dr) PO SCH; RX INFO: IV CONTRAST WAS GIVEN 1 EACH MISC MISCELLANE PRN; TACROLIMUS TOPICAL PRN; ZOLPIDEM 5 MG TAB PO PRN; amLODIPine 2.5 MG TAB PO SCH; atenoloL 50 MG TAB PO SCH; hydrOXYzine pamoate 25 MG CAP PO SCH
[2024-10-17] MEDS: IV FLUID CONTINUATION 1,000 ML IV ONE ×2 (10:37→19:27)
[2024-10-17] MEDS: SODIUM CHLORIDE 0.9% 1,000 ML in EMPTY BAG 1 BAG IV SCH (10:37)
[2024-10-17 10:56] LABS: Basophils % (A) 1 %; Eosinophils # (A) 0.4 k/uL (0-0.7); Eosinophils % (A) 5 %; HCT 34.4 % (39.0-53.0); HGB 11.1 gm/dL (13.0-17.5); Lymphocytes # (A) 0.9 k/uL (1.0-4.8); Lymphocytes % (A) 12 %; MCH 33.7 pg (25.0-35.0); MCHC 32.2 g/dL (31.0-37.0); MCV 104.7 fL (80.0-100.0); Macrocytosis Slight; Mean Platelet Volume 7.4; Monocytes # (A) 0.4 k/uL (0-1.0); Monocytes % (A) 6 %; Neutrophils # (A) 5.3 k/uL (1.3-7.7); Neutrophils % (A) 72 %; Platelet Count 329 k/uL (150-450); RBC 3.29 m/uL (4.30-5.90); WBC 7.4 k/uL (3.8-10.6)
[2024-10-17] MEDS: ASPIRIN 325 MG TAB PO STA (10:59)
[2024-10-17] MEDS: ALPRAZolam 0.5 MG TAB PO PRN (11:03)
[2024-10-17 11:06] VITALS: TEMP 97.8
[2024-10-17] MEDS: LIDOCAINE 1% INJ 10MG/ML (20 ML MDV) SQ ONE (13:07)
[2024-10-17] MEDS: fentaNYL (PF) 50 MCG/ML 2 ML AMP IVP ONE (13:09)
[2024-10-17] MEDS: HEPARIN SODIUM 1,000 UN/ML (10ML VL) IVP ONE (13:10)
[2024-10-17] MEDS: VERAPAMIL SYRINGE (5 MG/10 ML) INTRAARTER ONE (13:10)
[2024-10-17] MEDS: MIDAZOLAM 2 MG/2 ML VIAL IVP ONE (13:10)
[2024-10-17] MEDS: CLOPIDOGREL 75 MG TAB PO ONE (13:35)
[2024-10-17] MEDS: IOPAMIDOL-370 100ML BTL INJ ONE (13:35)
--- NOTE | 2024-10-17 15:04 | P.PRCINT ---
Percutaneous Coronary Int. - Percutaneous Coronary Intervention Percutaneous Coronary Intervention: PROCEDURES PERFORMED: Left heart catheterization, bilateral coronary angiography, ultrasound guided arterial access, iFR RCA, IVUS RCA, PCI RCA with a 3.0 x 12 Xience NINA post dilated with 4.0mm NC balloon INDICATION: new-onset dyspnea on exertion [place] Heart [employer] class IV symptoms consistent with angina. CONSENT:I have discussed the risks, benefits and alternative therapies for the above-mentioned procedure and for both sedation/analgesia as well as necessary blood product administration, if indicated, as they pertain to this patient. The patient has indicated understanding and acceptance of the risks and procedures discussed. PROCEDURE: After the risks, benefits and alternatives of the above mentioned procedure explained in detail with the patient, informed consent was obtained. Patient was taken to the catheterization lab and prepped and draped in usual fashion. Ultrasound guidance was used to assess for arterial access. 1% lidocaine was used to anesthetize the right radial artery. A 6-Greek sheath was placed in the right radial artery using modified Seldinger technique and ultrasound guidance. Left coronary angiography was performed with a 5-Greek JL 3.5 catheter and right coronary angiography was performed with a 5-Greek FR5 catheter in various views. A 5-Greek FR5 catheter was inserted into the left ventricle and pressure measurements were obtained. The decision was made to perform further assessment of the RCA lesion. A 6- Greek AL 0.75 guide was he is to engage the RCA. A 0.014 pressure wire was advanced into the proximal RCA and normalized and then advanced into the mid to distal RCA however wire was not stable and resulted at 0.95. The lesion appeared to 80-90% angiographically and therefore intravascular ultrasound was performed which did verify significant 80% stenosis. Predilation was performed with a 3.0 mm x 8 noncompliant balloon. Next a 3.0 x 12 mm drug-eluting stent was placed in the mid RCA just past the marginal branch. Repeat intravascular ultrasound showed some underexpansion despite blunting with a 3.0 noncompliant balloon. Reference vessel proximally was 4.0 and distally was 3.25-3.5 mm. Therefore the stent was postdilated with a 4.0 mm noncompliant balloon. Repeat intravascular ultrasound showed excellent stent apposition with no dissection. Final angiograms were performed. Preintervention there is a 80% stenosis and JOAQUIN-3 flow and postintervention there is less than 10% stenosis with JOAQUIN 3 flow. The right radial sheath was removed and a TR band was placed with hemostasis achieved. The patient tolerated the procedure well. Patient was transported back to the post catheterization holding area in stable condition. Conscious Sedation: Patient was monitored under the direct supervision of myself for conscious sedation using Versed and fentanyl for a total duration of 46 minutes HEMODYNAMICS: Ao: 133/78 LV: 130/8, LVEDP 16 SELECTIVE CORONARY ARTERIOGRAPHY: LEFT MAIN: The left main is a large caliber vessel which bifurcates into the LAD and circumflex. There is no significant stenosis. LEFT ANTERIOR DESCENDING CORONARY ARTERY: LAD is a large caliber vessel which wraps around to the apex. There is a high diagonal branch which is moderate caliber with no significant stenosis. Just after the diagonal 1 branch there is a 30-40% LAD stenosis. Otherwise there are mild luminal irregularities. LEFT CIRCUMFLEX CORONARY ARTERY: Left circumflex is a moderate caliber vessel with mild luminal irregularities. RIGHT CORONARY ARTERY: The right coronary artery is a large caliber vessel which gives off a PDA and PLV branch and is the dominant vessel. There is a mid RCA 80% stenosis and otherwise mild luminal irregularities. FINAL IMPRESSION: 1. CAD as described above including proximal to mid LAD 30-40% stenosis, mid RCA 80% stenosis 2. Mildly elevated left sided filling pressures 3. S/p PCI RCA with a 3.0 x 12 Xience NINA post dilated with 4.0mm NC balloon PLAN: 1. Aggressive risk factor modification per most recent ACC/AHA guidelines. 2. Continue Eliquis and Plavix for 6 months.
[2024-10-17 19:23] VITALS: PULSE 50; RESP 16
[2024-10-17 19:26] VITALS: BP 149/72
== END ==
LOC: CATHCVL 09:50
PROVIDERS: ATTEND Internal Medicine
DX: I25.10 Atherosclerotic heart disease of native coronary artery without angina pectoris (principal); I26.99 Other pulmonary embolism without acute cor pulmonale; I48.0 Paroxysmal atrial fibrillation; I10 Essential (primary) hypertension; K21.9 Gastro-esophageal reflux disease without esophagitis; Z79.01 Long term (current) use of anticoagulants; Z88.6 Allergy status to analgesic agent; Z88.8 Allergy status to other drugs, medicaments and biological substances; Z79.899 Other long term (current) drug therapy
CPT/HCPCS: 99152; 99153; 92978; 93458; 93799; 85025; C9600; C1887; C1769 ×2; C1894; C1753; C1874; C1725 ×2; J2250; J2003; J3010; J1644; Q9967

== ENCOUNTER 2024-11-22 09:21 | Emergency (ER) | payer MEDICARE ==
--- NOTE | 2024-11-22 10:28 | ED ---
Extremity Problem HPI - General Source: patient, family, RN notes reviewed Mode of arrival: wheelchair Limitations: no limitations <Elizabeth Youssef - Last Filed: 11/22/24 10:27> - General Source: patient, family, RN notes reviewed Mode of arrival: wheelchair Limitations: no limitations <Edil Rodriguez - Last Filed: 11/22/24 13:05> - General Chief complaint: Extremity Problem,Nontraumatic Stated complaint: bilateral feet pain Time Seen by Provider: 11/22/24 10:27 - History of Present Illness Initial comments: Quick note: 79-year-old male presented to the ER for evaluation of bilateral lower extremity swelling. reports they recently returned from a trip to [place]. They do he drove the ER which was approximately 12-hour drive. They noted while in [place] redness to the right foot which appeared red, hot and swollen. This soon was also seen on the left foot. History of a stent 4 weeks ago. Patient is on Eliquis. reports patient has been having some shortness of breath over the past 4 days. (Elizabeth Youssef) Patient is a 79-year-old male present to the emergency department with concerns for bilateral foot pain and swelling. Right more than left foot. Symptoms started around a week ago and it progressively has worsened. Patient states symptoms worsen with ambulation. Area of discomfort is right first MTP. Right greater than left. Patient has noticed some redness as well. No history of similar symptoms previously. Patient states he has had shortness of breath prior to his cardiac stent 4 weeks ago. Patient is on Eliquis and Plavix. P atient states dyspnea is only with exertion and is not worsened since the stent. No chest pain (Edil Rodriguez) - Related Data Home Medications Medication Instructions Recorded Confirmed Chlorthalidone 25 mg PO DAILY 07/21/23 10/17/24 Omeprazole [PriLOSEC] 20 mg PO AC-BRKFST 07/21/23 10/17/24 Petrolatum, White [Aquaphor] 1 applic TOPICAL BID PRN 07/21/23 10/15/24 atenoloL [Tenormin] 100 mg PO HS 07/21/23 10/17/24 lisinopriL 40 mg PO DAILY 07/21/23 10/17/24 Acitretin [Soriatane] 50 mg PO DAILY 10/15/24 10/17/24 Albuterol Inhaler [Ventolin Hfa 1 - 2 puff INHALATION Q6H PRN 10/15/24 10/17/24 Inhaler] Apixaban [Eliquis] 5 mg PO BID 10/15/24 10/15/24 Fluticasone Propion/Salmeterol 1 inhalation PO BID 10/15/24 10/17/24 [Fluticasone-Salmeterol 500-50] Furosemide [Lasix] 40 mg PO DAILY PRN 10/15/24 10/17/24 Tacrolimus [Protoptic 0.1%] 1 applic TOPICAL DAILY PRN 10/15/24 10/15/24 amLODIPine [Norvasc] 2.5 mg PO HS 10/15/24 10/17/24 hydrOXYzine pamoate [Vistaril] 25 mg PO TID 10/15/24 10/17/24 Previous Rx's Medication Instructions Recorded Indomethacin [Indocin] 50 mg PO TID PRN #20 capsule 11/22/24 Allergies Allergy/AdvReac Type Severity Reaction Status Date / Time ibuprofen AdvReac Unknown Verified 11/22/24 09:54 steroid Allergy Chest Pain Uncoded 11/22/24 09:54 Review of Systems ROS Other: All systems not noted in ROS Statement are negative. <Elizabeth Youssef - Last Filed: 11/22/24 10:27> ROS Other: All systems not noted in ROS Statement are negative. Constitutional: Denies: fever, chills Eyes: Denies: eye pain ENT: Denies: ear pain Respiratory: Reports: as per HPI. Denies: cough Cardiovascular: Denies: chest pain Endocrine: Denies: fatigue Gastrointestinal: Denies: abdominal pain Musculoskeletal: Reports: as per HPI Skin: Reports: as per HPI <Edil Rodriguez - Last Filed: 11/22/24 13:05> ROS Statement: Those systems with pertinent positive or pertinent negative responses have been documented in the HPI. Past Medical History Past Medical History: Atrial Fibrillation, Hearing Disorder / Deafness, Hypertension, Pulmonary Embolus (PE), Skin Disorder, Sleep Apnea/CPAP/BIPAP Additional Past Medical History / Comment(s): Eczema/skin rashes, possibly from agent orange exposure in [place]; PE 2022; uses CPAP; deaf right ear, [place] left ear, wears hearing aids. History of Any Multi-Drug Resistant Organisms: None Reported Past Surgical History: Appendectomy, Heart Catheterization With Stent Past Anesthesia/Blood Transfusion Reactions: No Reported Reaction Past Psychological History: No Psychological Hx Reported Smoking Status: Never smoker Past Alcohol Use History: Daily Past Drug Use History: None Reported - Past Family History Father Family Medical History: Hypertension Sister(s) Additional Family Medical History / Comment(s): artificial valve <Elizabeth Youssef - Last Filed: 11/22/24 10:27> General Exam Limitations: no limitations <Elizabeth Youssef - Last Filed: 11/22/24 10:27> Limitations: no limitations General appearance: alert, in no apparent distress Head exam: Present: normocephalic Neck exam: Present: normal inspection Respiratory exam: Present: normal lung sounds bilaterally Cardiovascular Exam: Present: regular rate, normal rhythm GI/Abdominal exam: Present: soft. Absent: tenderness Extremities exam: Present: other (Right greater than left first MTP with tenderness and mild swelling and mild erythema. Discomfort with range of motion.) Neurological exam: Present: alert. Absent: motor sensory deficit Psychiatric exam: Present: normal affect, normal mood Skin exam: Present: erythema (Right greater than left first MTP) <Edil Rodriguez Last Filed: 11/22/24 13:05> - General Exam Comments Initial Comments: Visual Physical Exam Vital signs reviewed General: Well-appearing, nontoxic, no acute distress. Head: Normocephalic, atraumatic Eyes: PERRLA, EOMI ENT: Airway patent Chest: Nonlabored breathing Skin: No visual rash, normal skin tone Neuro: Alert and oriented 3 Musculoskeletal: No gross abnormalities edematous bilateral ankles (Elizabeth Youssef) Course Vital Signs 11/22/24 09:51 Temperature 98 F Pulse Rate 67 Respiratory 18 Rate Blood Pressure 149/82 O2 Sat by Pulse 100 Oximetry Medical Decision Making <Elizabeth Youssef - Last Filed: 11/22/24 10:27> - Lab Data Result diagrams: 11/22/24 10:59 11/22/24 10:59 <Edil Rodriguez Last Filed: 11/22/24 13:05> - Medical Decision Making I performed the quick note portion of this chart. Electronically signed by Elizabeth Youssef PA-C (Elizabeth Youssef) Was pt. sent in by a medical professional or institution ([facility], [facility], urgent care, hospital, or [facility]...) When possible be specific @ -No Did you speak to anyone other than the patient for history (EMS, parent, family, police, friend...)? What history was obtained from this source @ - is present and helps provide history including onset and progression of disease. Did you review nursing and triage notes (agree or disagree)? Why? @ -I reviewed and agree with nursing and triage notes Were old charts reviewed (outside hosp., previous admission, EMS record, old EKG, old radiological studies, urgent care reports/EKG's, [facility] records)? Report findings @ -No old charts were reviewed Differential Diagnosis (chest pain, altered mental status, abdominal pain women, abdominal pain men, vaginal bleeding, weakness, fever, dyspnea, syncope, headache, dizziness, GI bleed, back pain, seizure, CVA, palpatations, mental health, musculoskeletal)? @ -Differential Musculoskeletal Muscular strain, contusion, ligament sprain, fracture, arthritis, septic arthritis, bursitis, cellulitis, muscle spasm, nerve compression, DVT, arterial occlusion, herpes zoster, electrolyte abnormality, tumor.... This is not meant to be in all inclusive list EKG interpreted by me (3pts min.). @ -As above X-rays interpreted by me (1pt min.). @ -None done CT interpreted by me (1pt min.). @ -None done U/S interpreted by me (1pt. min.). @ -Ultrasound without evidence of DVT. What testing was considered but not performed or refused? (CT, X-rays, U/S, labs)? Why? @ -None What meds were considered but not given or refused? Why? @ -None Did you discuss the management of the patient with other professionals (professionals i.e. [facility], [facility], lab, RT, psych nurse, social director, adoption agent, teacher, sailing officer, disability case manager)? Give summary @ -No Was smoking cessation discussed for >3mins.? @ -No Was critical care preformed (if so, how long)? @ -No Were there social determinants of health that impacted care today? How? (Ho melessness, low income, unemployed, alcoholism, drug addiction, transportation, low edu. Level, literacy, decrease access to med. care, care home, rehab)? @ -No Was there de-escalation of care discussed even if they declined (Discuss DNR or withdrawal of care, Hospice)? DNR status @ -No What co-morbidities impacted this encounter? (DM, HTN, Smoking, COPD, CAD, Cancer, CVA, ARF, Chemo, Hep., AIDS, mental health diagnosis, sleep apnea, morbid obesity)? @ -Recent cardiac stent. On anticoagulant. Was patient admitted / discharged? Hospital course, mention meds given and route, prescriptions, significant lab abnormalities, going to OR and other pertinent info. @ -Patient presents with right greater than left first MTP pain swelling and mild redness. Symptoms consistent with history of gout. Ultrasound shows no evidence of DVT, in addition patient is on Eliquis and Plavix. Patient will be discharged with anti-inflammatories this was discussed with patient and prior to providing medication and prescription. They are updated on results and need for follow-up with further care. Undiagnosed new problem with uncertain prognosis? @ -No Drug Therapy requiring intensive monitoring for toxicity (Heparin, Nitro, Insulin, Cardizem)? @ -No Were any procedures done? @ -No Diagnosis/symptom? @ -Gout Acute, or Chronic, or Acute on Chronic? @ -Acute gout which Uncomplicated (without systemic symptoms) or Complicated (systemic symptoms)? @ -Default Side effects of treatment? @ -No Exacerbation, Progression, or Severe Exacerbation? @ -No Poses a threat to life or bodily function? How? (Chest pain, USA, ME, pneumonia, PE, COPD, DKA, ARF, appy, cholecystitis, CVA, Diverticulitis, Homicidal, Suicidal, threat to staff... and all critical care pts) @ -No (Edil Rodriguez) - Lab Data Lab Results 11/22/24 11/22/24 11/22/24 Range/Units 09:55 10:59 10:59 WBC 9.6 (3.8-10.6) k/uL RBC 3.65 L (4.30-5.90) m/uL Hgb 12.2 L (13.0-17.5) gm/dL Hct 38.6 L (39.0-53.0) % MCV 105.8 H (80.0-100.0) fL MCH 33.3 (25.0-35.0) pg MCHC 31.5 (31.0-37.0) g/dL RDW 12.6 (11.5-15.5) % Plt Count 321 (150-450) k/uL MPV 8.3 Neutrophils % 76 % Lymphocytes % 10 % Monocytes % 9 % Eosinophils % 2 % Basophils % 0 % Neutrophils # 7.3 (1.3-7.7) k/uL Lymphocytes # 0.9 L (1.0-4.8) k/uL Monocytes # 0.8 (0-1.0) k/uL Eosinophils # 0.1 (0-0.7) k/uL Basophils # 0.0 (0-0.2) k/uL Macrocytosis Slight PT (10.0-12.5) sec INR (<1.2) APTT (22.0-30.0) sec Sodium 134 L (137-145) mmol/L Potassium 3.8 (3.5-5.1) mmol/L Chloride 98 (98-107) mmol/L Carbon Dioxide 25 (22-30) mmol/L Anion Gap 11 mmol/L BUN 23 H (9-20) mg/dL Creatinine 1.25 (0.66-1.25) mg/dL Est GFR (CKD-EPI)AfAm 64 (>60 ml/min/1.73 sqM) Est GFR (CKD-EPI)NonAf 55 (>60 ml/min/1.73 sqM) Glucose 105 H (74-99) mg/dL Calcium 8.9 (8.4-10.2) mg/dL Total Bilirubin 1.7 H (0.2-1.3) mg/dL AST 105 H (17-59) U/L ALT 45 (4-49) U/L Alkaline Phosphatase 312 H (38-126) U/L NT-Pro-B Natriuret Pep 2010 pg/mL Total Protein 7.6 (6.3-8.2) g/dL Albumin 3.5 (3.5-5.0) g/dL Urine Color Yellow Urine Appearance Clear (Clear) Urine pH 6.5 (5.0-8.0) Ur Specific [place] 1.010 (1.001-1.035) Urine Protein Negative (Negative) Urine Glucose (UA) Negative (Negative) Urine Ketones Negative (Negative) Urine Blood Negative (Negative) Urine Nitrite Negative (Negative) Urine Bilirubin Negative (Negative) Urine Urobilinogen 6.0 (<2.0) mg/dL Ur Leukocyte Esterase Negative (Negative) 11/22/24 Range/Units 10:59 WBC (3.8-10.6) k/uL RBC (4.30-5.90) m/uL Hgb (13.0-17.5) gm/dL Hct (39.0-53.0) % MCV (80.0-100.0) fL MCH (25.0-35.0) pg MCHC (31.0-37.0) g/dL RDW (11.5-15.5) % Plt Count (150-450) k/uL MPV Neutrophils % % Lymphocytes % % Monocytes % % Eosinophils % % Basophils % % Neutrophils # (1.3-7.7) k/uL Lymphocytes # (1.0-4.8) k/uL Monocytes # (0-1.0) k/uL Eosinophils # (0-0.7) k/uL Basophils # (0-0.2) k/uL Macrocytosis PT 11.8 (10.0-12.5) sec INR 1.1 (<1.2) APTT 26.0 (22.0-30.0) sec Sodium (137-145) mmol/L Potassium (3.5-5.1) mmol/L Chloride (98-107) mmol/L Carbon Dioxide (22-30) mmol/L Anion Gap mmol/L BUN (9-20) mg/dL Creatinine (0.66-1.25) mg/dL Est GFR (CKD-EPI)AfAm (>60 ml/min/1.73 sqM) Est GFR (CKD-EPI)NonAf (>60 ml/min/1.73 sqM) Glucose (74-99) mg/dL Calcium (8.4-10.2) mg/dL Total Bilirubin (0.2-1.3) mg/dL AST (17-59) U/L ALT (4-49) U/L Alkaline Phosphatase (38-126) U/L NT-Pro-B Natriuret Pep pg/mL Total Protein (6.3-8.2) g/dL Albumin (3.5-5.0) g/dL Urine Color Urine Appearance (Clear) Urine pH (5.0-8.0) Ur Specific [place] (1.001-1.035) Urine Protein (Negative) Urine Glucose (UA) (Negative) Urine Ketones (Negative) Urine Blood (Negative) Urine Nitrite (Negative) Urine Bilirubin (Negative) Urine Urobilinogen (<2.0) mg/dL Ur Leukocyte Esterase (Negative) Disposition <Elizabeth Youssef - Last Filed: 11/22/24 10:27> Is patient prescribed a controlled substance at d/c from ED?: No Time of Disposition: 13:03 <Edil Rodriguez - Last Filed: 11/22/24 13:05> Clinical Impression: Gout Disposition: HOME SELF-CARE Condition: Stable Instructions (If sedation given, give patient instructions): Gout (ED) Additional Instructions: Prescription sent to pharmacy. Watch for potential allergic reaction. Please do follow-up with your primary care physician in the next couple of days for recheck. There is additional medications that can be provided. Return for fever, increased pain or swelling, worsening or changing symptoms or any other concerns. Prescriptions: Indomethacin [Indocin] 50 mg PO TID PRN #20 capsule PRN Reason: Pain Referrals: None,Stated [Primary Care Provider] - 1-2 days Skinny Joshua DO [Doctor of Osteopathic Medicine] - 1-2 days
--- NOTE | 2024-11-22 11:16 | US ---
EXAMINATION TYPE: US venous doppler duplex LE BI DATE OF EXAM: 11/22/2024 11:04 AM COMPARISON: US(07/22/2023) CLINICAL INDICATION: Male, 79 years old with history of precious LE edema recent travel; , Pain TECHNIQUE: The lower extremity deep venous system is examined utilizing real time linear array sonog aki with graded compression, color doppler sonography, and spectral doppler. SIDE PERFORMED: Bilateral FINDINGS: VESSELS IMAGED: Common Femoral Vein Deep Femoral Vein Greater Saphenous Vein * Femoral Vein Popliteal Vein Small Saphenous Vein * Proximal Calf Veins (* superficial vessels) slightly limited exam due to pt unable to bend leg properly, pop & calf veins limited Right Leg: appears negative for DVTs patency of the vessels. Spectral waveforms are within normal li mits. Limited calf vs due to edema Left Leg: appears negative for DVT shows patency of the vessels. Spectral waveforms are within john l limits. Limited calf vs due to edema IMPRESSION: Suboptimal study without acute DVT in either lower extremity identified . [facility], , 11/22/2024 11:14 AM
[2024-11-22 11:18] LABS: Appearance,Urine Clear (Clear); Bilirubin,Urine Negative (Negative); Blood,Urine Negative (Negative); Color,Urine Yellow; Glucose,Urine (UA) Negative (Negative); Ketones,Urine Negative (Negative); Leukocyte Esterase,Urine Negative (Negative); Nitrite,Urine Negative (Negative); PH, Urine 6.5 (5.0-8.0); Protein,Urine Negative (Negative)
[2024-11-22 11:29] LABS: Basophils % (A) 0 %; Eosinophils # (A) 0.1 k/uL (0-0.7); Eosinophils % (A) 2 %; HCT 38.6 % (39.0-53.0); HGB 12.2 gm/dL (13.0-17.5); Lymphocytes # (A) 0.9 k/uL (1.0-4.8); Lymphocytes % (A) 10 %; MCH 33.3 pg (25.0-35.0); MCHC 31.5 g/dL (31.0-37.0); MCV 105.8 fL (80.0-100.0); Macrocytosis Slight; Mean Platelet Volume 8.3; Monocytes # (A) 0.8 k/uL (0-1.0); Monocytes % (A) 9 %; Neutrophils # (A) 7.3 k/uL (1.3-7.7); Neutrophils % (A) 76 %; Platelet Count 321 k/uL (150-450); RBC 3.65 m/uL (4.30-5.90); RDW 12.6 % (11.5-15.5); WBC 9.6 k/uL (3.8-10.6)
[2024-11-22 11:43] LABS: ALT 45 U/L (4-49); AST 105 U/L (17-59); African American GFR (CKD) 64 (>60 ml/min/1.73 sqM); Albumin 3.5 g/dL (3.5-5.0); Alkaline Phosphatase 312 U/L (38-126); Anion Gap 11 mmol/L; Blood Urea Nitrogen 23 mg/dL (9-20); Calcium 8.9 mg/dL (8.4-10.2); Carbon Dioxide 25 mmol/L (22-30); Chloride 98 mmol/L (98-107); Glucose 105 mg/dL (74-99); Non-African American GFR(CKD) 55 (>60 ml/min/1.73 sqM); Potassium 3.8 mmol/L (3.5-5.1); Sodium 134 mmol/L (137-145); Total Bilirubin 1.7 mg/dL (0.2-1.3); Total Protein 7.6 g/dL (6.3-8.2)
[2024-11-22 11:46] LABS: INR 1.1 (<1.2); Prothrombin Time 11.8 sec (10.0-12.5)
[2024-11-22 11:52] LABS: NT-Pro-B-Type Natriuretic Pept 2010 pg/mL
[2024-11-22] MEDS: KETOROLAC 15 MG/ML 1 ML VIAL IVP STA (13:13)
[2024-11-22 13:30] VITALS: BP 140/68; PULSE 68; RESP 20; TEMP 98.2
== END 2024-11-22 13:28 | disposition home or self-care (01) ==
LOC: EC 09:21
DX: M10.9 Gout, unspecified (principal); Z79.01 Long term (current) use of anticoagulants; Z88.6 Allergy status to analgesic agent; Z88.8 Allergy status to other drugs, medicaments and biological substances; Z95.5 Presence of coronary angioplasty implant and graft
CPT/HCPCS: 36415; 83880; 80053; 85025; 85610; 85730; 81003; 93970; 99284; 96374; J1885